=== PATIENT | female | born 1980 | race African-American/Black ===

== ENCOUNTER 2018-07-09 12:04 | Inpatient (IN) | payer OTHER ==
[2018-07-09 12:33] VITALS: BMI 28.6
--- NOTE | 2018-07-09 14:16 | HP ---
CIWA Score Nausea/Vomitin Muscle Tremors: 3 Anxiety: 3 Agitation: 2 Paroxysmal Sweats: 1-Minimal Palms Moist Orientation: 0-Oriented Tacttile Disturbances: 1-Very Mild Itch/Numbness Auditory Disturbances: 1-Very Mild Visual Disturbances: 0-None Headache: 2-Mild CIWA-Ar Total Score: 16 - Admission Criteria OASAS Guidelines: Admission for Medically Managed Detox: Requires at least one of the followin. CIWA greater than 12 2. Seizures within the past 24 hours 3. Delirium tremens within the past 24 hours 4. Hallucinations within the past 24 hours 5. Acute intervention needed for co occurring medical disorder 6. Acute intervention needed for co occurring psychiatric disorder 7. Severe withdrawal that cannot be handled at a lower level of care (continued vomiting, continued diarrhea, abnormal vital signs) requiring intravenous medication and/or fluids 8. Patient presents the following: CIWA greater than 12 Admission Criteria Met: Admission criteria met Admission ROS BHS - HPI Chief Complaint: i need help to stop drinking alcohol Allergies/Adverse Reactions: Allergies Allergy/AdvReac Type Severity Reaction Status Date / Time lamotrigine [From Lamictal] Allergy Severe Rash Verified 07/09/18 14:07 Penicillins Allergy Severe Hives Verified 07/09/18 14:07 History of Present Illness: this 38 years old female with alcohol dependence,k2,withdrawal symptom,last detox [facility] in 03/15 not completed hypertension ,iddm, nicotine dependence bipolar disorder plan for inpatient rehab longest period of sobriety 2 years asthmatic bronchitis seen at [facility] last night Exam Limitations: No Limitations - Ebola screening Have you traveled outside of the country in the last 21 days: No Have you had contact with anyone from an Ebola affected area: No Have you been sick,other than usual withdrawal symptoms: No Do you have a fever: No - Review of Systems Constitutional: Loss of Appetite, Malaise, Night Sweats, Changes in sleep, Weakness EENT: reports: Nose Congestion Respiratory: reports: No Symptoms reported, Other (history of bronchitis) Cardiac: reports: No Symptoms Reported GI: reports: Nausea, Vomiting, Abdominal cramping : reports: No Symptoms Reported Musculoskeletal: reports: Back Pain, Muscle Pain Integumentary: reports: Dryness Neuro: reports: Headache, Tremors Endocrine: reports: No Symptoms Reported Hematology: reports: No Symptoms Reported Psychiatric: reports: No Sypmtoms Reported, Judgement Intact, Mood/Affect Appropiate, Orientated x3, other (bipolar disorder) Other Systems: Reviewed and Negative Patient History - Patient Medical History Hx Anemia: No Hx Asthma: No Hx Chronic Obstructive Pulmonary Disease (COPD): No Hx Cancer: No Hx Cardiac Disorders: No Hx Congestive Heart Failure: No Hx Hypertension: Yes (on med) Hx Hypercholesterolemia: No Hx Pacemaker: No HX Cerebrovascular Accident: No Hx Seizures: No Hx Dementia: No Hx Diabetes: Yes (iddm) Hx Gastrointestinal Disorders: Yes (gerd no med) Hx Liver Disease: No Hx Genitourinary Disorders: No Hx Sexually Transmitted Disorders: No Hx Renal Disease (ESRD): No Hx Thyroid Disease: No Hx Human Immunodeficiency Virus (HIV): No (last 2018 negative) Hx Hepatitis C: No Hx Depression: No Hx Suicide Attempt: Yes (overdose) Hx Bipolar Disorder: Yes Hx Schizophrenia: No Other Medical History: no suicidal,no homicidal - Patient Surgical History Hx Section: Yes (x 2 last 2005) - PPD History Previous Implant?: Yes Documented Results: Negative w/o proof Implanted On Prior R Admission?: No PPD to be Administered?: Yes - Reproductive History Patient is a Female of Child Bearing Age (11 -55 yrs old): Yes Last Menstrual Period: 07/02/18 Patient : No - Smoking Cessation Smoking history: Current every day smoker Have you smoked in the past 12 months: Yes Aproximately how many cigarettes per day: 6 Cigars Per Day: 0 Hx Chewing Tobacco Use: No Initiated information on smoking cessation: Yes 'Breaking Loose' booklet given: 07/09/18 - Substance & Tx. History Hx Alcohol Use: Yes Hx Substance Use: Yes Substance Use Type: Alcohol, Marijuana Hx Substance Use Treatment: Yes (03/15 at [facility]) - Substances Abused Alcohol Route: Oral Frequency: Daily Amount used: 1/2 GALLON Age of first use: 11 Date of Last Use: 07/09/18 K2 Route: Smoking Frequency: Daily Amount used: $40-50 Age of first use: 33 Date of Last Use: 07/08/18 Family Disease History - Family Disease History Family Disease History: Other: Father (alcohol,decased), Mother () Admission Physical Exam BHS - Vital Signs Vital Signs: Vital Signs - 24 hr 02/11/19 12:31 Temperature 98.0 F Pulse Rate 68 Respiratory 18 Rate Blood Pressure 124/70 - Physical General Appearance: Yes: Moderate Distress, Tremorous, Irritable, Sweating, Anxious HEENTM: Yes: Normal ENT Inspection, CARMEN, Pharynx Normal Respiratory: Yes: Lungs Clear, Normal Breath Sounds, No Respiratory Distress Neck: Yes: Within Normal Limits, Supple, Trachea in good position Breast: Yes: Breast Exam Deferred Cardiology: Yes: Within Normal Limits, Regular Rhythm, Regular Rate, S1, S2 Abdominal: Yes: Within Normal Limits, Non Tender, Flat, Soft, Increased Bowel Sounds Genitourinary: Yes: Within Normal Limits Back: Yes: Muscle Spasm Musculoskeletal: Yes: Back pain, Muscle Pain Extremities: Yes: Tremors Neurological: Yes: antique furniture reproducer II-XII NML intact, Fully Oriented, Alert, Motor Strength 5/5 Integumentary: Yes: Dry Lymphatic: Yes: Within Normal Limits - Diagnostic (1) Alcohol dependence with uncomplicated withdrawal Current Visit: Yes Status: Chronic (2) Cannabis dependence Current Visit: Yes Status: Chronic (3) IDDM (insulin dependent diabetes mellitus) Current Visit: Yes Status: Chronic (4) Bipolar disorder Current Visit: Yes Status: Chronic (5) Neuropathy Current Visit: Yes Status: Acute (6) Nicotine dependence Current Visit: Yes Status: Chronic (7) Bipolar disorder Current Visit: Yes Status: Acute Cleared for Admission [facility] - Detox or Rehab [facility] Level of Care: Medically Managed Detox Regimen/Protocol: Librium [facility] Breath Alcohol Content Breath Alcohol Content: 0 Urine Pregancy Test - Result Urine Test Results: Negative- NO Line Present Urine Drug Screen - Results Drug Screen Negative: Yes Inpatient Rehab Admission - Rehab Decision to Admit Inpatient rehab admission?: No
[2018-07-09] MEDS ORDERED: NICOTINE POLACRILEX 2 MG GUM BC PRN (14:31)
[2018-07-09] MEDS ORDERED: MENTHOL/PHENOL 1 EACH UD MM PRN (14:31)
[2018-07-09] MEDS ORDERED: MAGNESIUM CITRATE 300 ML BOTTLE PO PRN (14:31)
[2018-07-09] MEDS ORDERED: P-EPHED 60MG/TRIPROLIDI 2.5MG TABLET PO PRN (14:31)
[2018-07-09] MEDS ORDERED: chlordiazePOXIDE HCL 25 MG CAPSULE PO PRN (14:31)
[2018-07-09] MEDS ORDERED: IBUPROFEN 400 MG TABLET (FP) PO PRN (14:31)
[2018-07-09] MEDS ORDERED: LOPERAMIDE HCL 2 MG CAPSULE PO PRN (14:31)
[2018-07-09] MEDS ORDERED: guaiFENesin/D-METHORPHAN HB 10 ML UNIT-DOSE CUPS PO PRN (14:31)
[2018-07-09] MEDS ORDERED: ACETAMINOPHEN 325 MG TABLET (FP) PO PRN (14:31)
[2018-07-09] MEDS ORDERED: hydrOXYzine PAMOATE 50 MG CAPSULE (FP) PO PRN (14:31)
[2018-07-09] MEDS ORDERED: MAG HYDROX/AL HYDROX/SIMETH 30 ML UNIT-DOSE CUP PO PRN (14:31)
[2018-07-09] MEDS ORDERED: MAGNESIUM HYDROX 2400MG/30ML ORAL SUSPENSION 30 ML CUP PO PRN (14:31)
[2018-07-09] MEDS ORDERED: ALBUTEROL SO4 8 GM HFA INHALER IH PRN (14:36)
--- NOTE | 2018-07-09 15:23 | CONSULT ---
[facility] Psychiatric Consult - Data Date of interview: 07/09/18 Admission source: [facility] Identifying data: this 38 years old female with alcohol dependence,k2, withdrawal symptom,last detox [facility] in 03/15 not completed. hypertension , iddm,. nicotine dependence. bipolar disorder. plan for inpatient rehab. longest period of sobriety 2 years. asthmatic bronchitis. seen at [facility] last night
[2018-07-09] MEDS: metFORMIN HCL 500 MG TABLET (FP) PO SCH (16:24)
[2018-07-09] MEDS: chlordiazePOXIDE HCL 25 MG CAPSULE PO SCH ×2 (16:25→22:01)
[2018-07-09] MEDS: GABAPENTIN 100 MG CAPSULE (FP) PO SCH ×2 (16:25→21:37)
[2018-07-09] MEDS: INSULIN (NOVOLOG) ASPART 100 UNITS/ML 10ML VIAL SQ SCH (16:28)
--- NOTE | 2018-07-09 17:08 | CONSULT ---
[facility] Psychiatric Consult - Data Date of interview: 07/09/18 Admission source: [facility] Identifying data: This is 38 yo single AA mother of 2 (kids in Foster care), resides in long-term,supported by PA. Substance Abuse History: Reports drinking since 11 yo,beer then progressed to vodka(1 ltr daily),marijuana since HS,K2 since 33 yo. Medical History: Significant for IDDM,Neuropathy. Psychiatric History: First contact with psychiatrist was in 1994 after her mother .She was admitted to [facility] due to suicidal attempt(cut her wrist) .patient was dx with MDD,placed on Lexapro with good response.then she was functioning well with no meds until her father in 2002.Patient was admitted again after DOD with cocaine.She was dx with Bipolar disorder.Reports more than 25 psychiatric hospitalizations.Patient is poor compliance with psychiatric OPD care.she obtains psychotropics from local ER.Current medications :Depakote 500 mg po bid,Trilafon 12 mg po bid and Vistaril 50 mg po hs. Physical/Sexual Abuse/Trauma History: Patient denies. Mental Status Exam - Mental Status Exam Alert and Oriented to: Time, Place, Person Cognitive Function: Grossly Intact Patient Appearance: Well Groomed Mood: Sad, Anxious Affect: Labile Patient Behavior: Cooperative Speech Pattern: Clear Voice Loudness: Normal Thought Process: Goal Oriented Thought Disorder: Not Present Hallucinations: Denies Suicidal Ideation: Denies Homicidal Ideation: Denies Insight/Judgement: Fair Sleep: Difficulty falling asleep Appetite: Fair Muscle strength/Tone: Normal Gait/Station: Normal Psychiatric Findings - Problem List ([place] 1, 2,3) (1) Alcohol dependence with uncomplicated withdrawal Current Visit: Yes Status: Chronic (2) Bipolar disorder Current Visit: Yes Status: Chronic (3) Cannabis dependence Current Visit: Yes Status: Chronic (4) IDDM (insulin dependent diabetes mellitus) Current Visit: Yes Status: Chronic (5) Neuropathy Current Visit: Yes Status: Acute (6) Nicotine dependence Current Visit: Yes Status: Chronic (7) Neuropathy Current Visit: Yes Status: Chronic - Initial Treatment Plan Initial Treatment Plan: Continue current medications as per plan. will monitor progress.
[2018-07-09] MEDS: INSULIN (LEVEMIR) 100 UNITS/ML UNITS SQ SCH (21:38)
[2018-07-09] MEDS: DIVALPROEX NA *ER* EXTEND REL 500 MG TABLET.SA (FP) PO SCH (21:38)
[2018-07-09] MEDS: PERPHENAZINE 4 MG TABLET PO SCH (21:38)
[2018-07-09] MEDS: THIAMINE HCL 100 MG TABLET (FP) PO SCH (21:42)
[2018-07-09] MEDS ORDERED: MELATONIN 5 MG TABLETS PO PRN (22:00)
[2018-07-10] MEDS: chlordiazePOXIDE HCL 25 MG CAPSULE PO SCH ×4 (05:57→22:40)
[2018-07-10] MEDS: GABAPENTIN 100 MG CAPSULE (FP) PO SCH ×3 (05:57→22:40)
[2018-07-10] MEDS: metFORMIN HCL 500 MG TABLET (FP) PO SCH ×2 (06:00→17:48)
[2018-07-10] MEDS ORDERED: INSULIN (NOVOLOG) ASPART 100 UNITS/ML 10ML VIAL ONE (08:11)
[2018-07-10] MEDS: INSULIN (NOVOLOG) ASPART 100 UNITS/ML 10ML VIAL SQ SCH ×3 (08:12→17:04)
--- NOTE | 2018-07-10 09:23 | PN ---
BHS CIWA - CIWA Score Nausea/Vomitin Muscle Tremors: 2 Anxiety: 2 Agitation: 2 Paroxysmal Sweats: 1-Minimal Palms Moist Orientation: 0-Oriented Tacttile Disturbances: 1-Very Mild Itch/Numbness Auditory Disturbances: 1-Very Mild Visual Disturbances: 0-None Headache: 2-Mild CIWA-Ar Total Score: 13 BHS Progress Note (SOAP) Subjective: alert,irritable,anxious,interrupted sleep,pain in the body Objective: 07/10/18 09:21 Vital Signs Temperature 98.2 F 07/10/18 09:07 Pulse Rate 71 07/10/18 09:07 Respiratory Rate 18 07/10/18 09:07 Blood Pressure 122/77 07/10/18 09:07 O2 Sat by Pulse Oximetry (%) ekg nsr ,no aucte change Laboratory Last Values POC Glucometer 197 UNITS (80-120) 07/10/18 06:53 labs pending Assessment: 07/10/18 09:22 withdrawal symptom Plan: continue detox,bgm monitoring with insulin coverage
[2018-07-10] MEDS: PRENATAL VITAMINS W/ FOLIC ACID TABLET (FP) PO SCH (10:41)
[2018-07-10] MEDS: DIVALPROEX NA *ER* EXTEND REL 500 MG TABLET.SA (FP) PO SCH ×2 (10:41→22:28)
[2018-07-10] MEDS: PERPHENAZINE 4 MG TABLET PO SCH ×2 (10:41→22:28)
[2018-07-10] MEDS: LOSARTAN POTASSIUM 25 MG TABLET PO SCH (10:42)
[2018-07-10 11:06] LABS: HEMOGLOBIN 14.2 GM/dL (10.7-15.3); MCH 32.5 pg (25.7-33.7); MCHC 34.5 g/dl (32.0-36.0); PLATELET COUNT 334 K/MM3 (134-434); RBC 4.36 M/mm3 (3.60-5.2); RDW 13.3 % (11.6-15.6); WHITE BLOOD COUNT 7.3 K/mm3 (4.0-10.0)
[2018-07-10 11:08] LABS: ALBUMIN 3.6 g/dl (3.4-5.0); ALK PHOS 85 U/L (45-117); ANION GAP 6 MMOL/L (8-16); BILIRUBIN,TOTAL 0.2 mg/dL (0.2-1); BLOOD UREA NITROGEN 12 mg/dL (7-18); CALCIUM 9.3 mg/dL (8.5-10.1); CHLORIDE 100 mmol/L (98-107); CO2 28 mmol/L (21-32); CREATININE 0.7 mg/dL (0.55-1.3); GLUCOSE,RANDOM 253 mg/dL (74-106); POTASSIUM 4.3 mmol/L (3.5-5.1); SGOT/AST 15 U/L (15-37); SGPT/ALT 18 U/L (13-61); SODIUM 135 mmol/L (136-145); TOT PROT 7.3 g/dl (6.4-8.2)
--- NOTE | 2018-07-10 11:44 | PN ---
BHS Progress Note Note: insulin sliding scale ordered with coverage.
--- NOTE | 2018-07-10 16:33 | EKG ---
Test Reason : Blood Pressure : / mmHG Vent. Rate : 074 BPM Atrial Rate : 074 BPM P-R Int : 148 ms QRS Dur : 090 ms QT Int : 406 ms P-R-T Axes : 073 095 067 degrees QTc Int : 450 ms NORMAL SINUS RHYTHM RIGHTWARD AXIS BORDERLINE ECG NO PREVIOUS ECGS AVAILABLE Confirmed by Tres Yoon ([id number]) on 07/10/2018 4:32:58 PM Referred By: Confirmed By:Tres Yoon
[2018-07-10] MEDS: THIAMINE HCL 100 MG TABLET (FP) PO SCH (22:40)
[2018-07-10] MEDS: INSULIN (LEVEMIR) 100 UNITS/ML UNITS SQ SCH (22:42)
[2018-07-11] MEDS: metFORMIN HCL 500 MG TABLET (FP) PO SCH (06:19)
[2018-07-11] MEDS: GABAPENTIN 100 MG CAPSULE (FP) PO SCH (06:19)
[2018-07-11] MEDS: chlordiazePOXIDE HCL 25 MG CAPSULE PO SCH ×2 (06:19→12:57)
[2018-07-11] MEDS: INSULIN (NOVOLOG) ASPART 100 UNITS/ML 10ML VIAL SQ SCH (08:06)
[2018-07-11 09:18] VITALS: BP 117/69; PULSE 75; TEMP 97.3
--- NOTE | 2018-07-11 12:56 | DS ---
[facility] Detox Discharge Summary Admission Date: 07/09/18 Discharge Date: 07/11/18 - History Present History: Alcohol Dependence Additional Comments: 38 years old female admitted on 07/09/18 for alcohol withdrawal stabilization transferred from 6N to 3N due to verbal augmentative with peer patient insists to leave the detox unit without apparent reason patient is alert no acute distress denies suicidal ideation encourage the patient keep medication list in wallet bring in medication bottles to follow up care appointments Pertinent Past History: strong recommend the patient to attend 12 step self help community groups - Physical Exam Results Vital Signs: Vital Signs Temperature 97.3 F L 07/11/18 09:17 Pulse Rate 75 07/11/18 09:17 Respiratory Rate 18 07/11/18 09:17 Blood Pressure 117/69 07/11/18 09:17 O2 Sat by Pulse Oximetry (%) Pertinent Admission Physical Exam Findings: alcohol withdrawal sx Laboratory Last Values WBC 7.3 K/mm3 (4.0-10.0) 07/10/18 05:50 RBC 4.36 M/mm3 (3.60-5.2) 07/10/18 05:50 Hgb 14.2 GM/dL (10.7-15.3) 07/10/18 05:50 Hct 41.0 % (32.4-45.2) 07/10/18 05:50 MCV 94.0 fl (80-96) 07/10/18 05:50 MCH 32.5 pg (25.7-33.7) 07/10/18 05:50 MCHC 34.5 g/dl (32.0-36.0) 07/10/18 05:50 RDW 13.3 % (11.6-15.6) 07/10/18 05:50 Plt Count 334 K/MM3 (134-434) 07/10/18 05:50 MPV 10.0 fl (7.5-11.1) 07/10/18 05:50 Sodium 135 mmol/L (136-145) L 07/10/18 05:50 Potassium 4.3 mmol/L (3.5-5.1) 07/10/18 05:50 Chloride 100 mmol/L (98-107) 07/10/18 05:50 Carbon Dioxide 28 mmol/L (21-32) 07/10/18 05:50 Anion Gap 6 MMOL/L (8-16) L 07/10/18 05:50 BUN 12 mg/dL (7-18) 07/10/18 05:50 Creatinine 0.7 mg/dL (0.55-1.3) 07/10/18 05:50 Creat Clearance w eGFR > 60 (>60) 07/10/18 05:50 POC Glucometer 203 UNITS (80-120) 07/11/18 06:17 Random Glucose 253 mg/dL (74-106) H 07/10/18 05:50 Calcium 9.3 mg/dL (8.5-10.1) 07/10/18 05:50 Total Bilirubin 0.2 mg/dL (0.2-1) 07/10/18 05:50 AST 15 U/L (15-37) 07/10/18 05:50 ALT 18 U/L (13-61) 07/10/18 05:50 Alkaline Phosphatase 85 U/L (45-117) 07/10/18 05:50 Total Protein 7.3 g/dl (6.4-8.2) 07/10/18 05:50 Albumin 3.6 g/dl (3.4-5.0) 07/10/18 05:50 RPR Titer Nonreactive (NONREACTIVE) 07/10/18 05:50 HIV 1&2 Antibody Screen Negative 07/09/18 14:30 HIV P24 Antigen Negative 07/09/18 14:30 lab noted - Treatment Hospital Course: Detox Protocol Followed, Responded well Patient has Accepted a Rehab Referral to: 12 step community self help group - Medication Discharge Medications: Ambulatory Orders Albuterol Sulfate Inhaler - [Ventolin Hfa Inhaler -] 2 inh PO Q4H PRN 07/09/18 Divalproex *ER* [Depakote *ER* -] 500 mg PO BID 07/09/18 Gabapentin [Neurontin -] 100 mg PO Q8H 07/09/18 Hydroxyzine HCl 50 mg PO HS 07/09/18 Insulin (Novolog) [Novolog] 6 units SQ AC 07/09/18 Insulin Glargine,Hum.rec.anlog [Lantus Solostar PEN (NF)] 18 units SQ HS Losartan Potassium [Cozaar -] 25 mg PO DAILY 07/09/18 Perphenazine [Trilafon] 12 mg PO BID 07/09/18 metFORMIN HCL [Metformin HCl] 1,000 mg PO BID 07/09/18 - Diagnosis (1) Alcohol dependence with uncomplicated withdrawal Status: Acute (2) IDDM (insulin dependent diabetes mellitus) Status: Chronic (3) Neuropathy Status: Chronic (4) Nicotine dependence Status: Acute Qualifiers: Nicotine product type: cigarettes Substance use status: in withdrawal Qualified Code(s): F17.213 - Nicotine dependence, cigarettes, with withdrawal - AMA Did Patient Leave Against Medical Advice: Yes
[2018-07-11] MEDS: DIVALPROEX NA *ER* EXTEND REL 500 MG TABLET.SA (FP) PO SCH (12:58)
[2018-07-11] MEDS: LOSARTAN POTASSIUM 25 MG TABLET PO SCH (12:58)
[2018-07-11] MEDS: PRENATAL VITAMINS W/ FOLIC ACID TABLET (FP) PO SCH (12:58)
[2018-07-11] MEDS: PERPHENAZINE 4 MG TABLET PO SCH (12:58)
[2018-07-11] MEDS ORDERED: chlordiazePOXIDE 5 MG CAPSULE PO SCH (17:00)
[2018-07-12] MEDS ORDERED: chlordiazePOXIDE HCL 10 MG CAPSULE PO SCH (17:00)
== END 2018-07-11 10:05 | disposition left against medical advice (07) | DRG 770 ==
LOC: YASAS 12:04 → Y6N 14:51 → Y3N 07-10 21:05
PROVIDERS: ADMIT Surgery; ATTEND Surgery
PROC: HZ2ZZZZ Detoxification Services for Substance Abuse Treatment (ICD-10-PCS; principal; 2018-07-09)
DX: F10.230 Alcohol dependence with withdrawal, uncomplicated (principal); F12.20 Cannabis dependence, uncomplicated; F17.213 Nicotine dependence, cigarettes, with withdrawal; F31.9 Bipolar disorder, unspecified; I10 Essential (primary) hypertension; E11.9 Type 2 diabetes mellitus without complications; G62.9 Polyneuropathy, unspecified; K21.9 Gastro-esophageal reflux disease without esophagitis; Z79.4 Long term (current) use of insulin; Z88.0 Allergy status to penicillin
CPT/HCPCS: 36415; 80053; 82962; 85027; 86593; 87389; 93005; 93010

== ENCOUNTER 2018-08-12 08:34 | Inpatient (IN) | payer OTHER ==
[2018-08-12 09:15] VITALS: BMI 25.5
--- NOTE | 2018-08-12 09:34 | HP ---
CIWA Score Nausea/Vomitin Muscle Tremors: 2 Anxiety: 2 Agitation: 2 Paroxysmal Sweats: 1-Minimal Palms Moist Orientation: 0-Oriented Tacttile Disturbances: 1-Very Mild Itch/Numbness Auditory Disturbances: 1-Very Mild Visual Disturbances: 0-None Headache: 2-Mild CIWA-Ar Total Score: 13 - Admission Criteria OASAS Guidelines: Admission for Medically Managed Detox: Requires at least one of the followin. CIWA greater than 12 2. Seizures within the past 24 hours 3. Delirium tremens within the past 24 hours 4. Hallucinations within the past 24 hours 5. Acute intervention needed for co occurring medical disorder 6. Acute intervention needed for co occurring psychiatric disorder 7. Severe withdrawal that cannot be handled at a lower level of care (continued vomiting, continued diarrhea, abnormal vital signs) requiring intravenous medication and/or fluids 8. Patient presents the following: CIWA greater than 12 Admission Criteria Met: Admission criteria met Admission ROS S - HPI Chief Complaint: i need help to stop drinking alcohol,crack,k2 Allergies/Adverse Reactions: Allergies Allergy/AdvReac Type Severity Reaction Status Date / Time lamotrigine [From Lamictal] Allergy Severe Rash Verified 08/12/18 10:30 Penicillins Allergy Severe Hives Verified 08/12/18 10:30 History of Present Illness: this 38 years old female with alcohol,crack and k2 dependence,withdrawal symptom ,seeking detox, multiple admissions in the past,last 07/09/18 to 07/11/18 not completed hypertension,iddm, history of herpes lip nicotine dependence 6 cigarette/day bipolar medication on med longest period of sobriety for 2 years Exam Limitations: No Limitations - Ebola screening Have you traveled outside of the country in the last 21 days: No (N) Have you had contact with anyone from an Ebola affected area: No Have you been sick,other than usual withdrawal symptoms: No Do you have a fever: No - Review of Systems Constitutional: Loss of Appetite, Malaise, Night Sweats, Changes in sleep, Weakness EENT: reports: Nose Congestion Respiratory: reports: No Symptoms reported Cardiac: reports: No Symptoms Reported GI: reports: Nausea, Poor Appetite, Abdominal cramping : reports: No Symptoms Reported Musculoskeletal: reports: Back Pain, Muscle Pain Integumentary: reports: Dryness Neuro: reports: Headache, Tremors Endocrine: reports: No Symptoms Reported Hematology: reports: No Symptoms Reported Psychiatric: reports: No Sypmtoms Reported, Judgement Intact, Mood/Affect Appropiate, Orientated x3, other (bipolar disorder) Other Systems: Reviewed and Negative Patient History - Patient Medical History Hx Anemia: No Hx Asthma: No Hx Chronic Obstructive Pulmonary Disease (COPD): No Hx Cancer: No Hx Cardiac Disorders: No Hx Congestive Heart Failure: No Hx Hypertension: Yes (on med) Hx Hypercholesterolemia: No Hx Pacemaker: No HX Cerebrovascular Accident: No Hx Seizures: No Hx Dementia: No Hx Diabetes: Yes (iddm) Hx Gastrointestinal Disorders: Yes (gerd no med) Hx Liver Disease: No Hx Genitourinary Disorders: No Hx Sexually Transmitted Disorders: No Hx Renal Disease (ESRD): No Hx Thyroid Disease: No Hx Human Immunodeficiency Virus (HIV): No (last 2017 negative) Hx Hepatitis C: No Hx Depression: No Hx Suicide Attempt: Yes (overdose in 2003) Hx Bipolar Disorder: Yes (on med) Hx Schizophrenia: No Other Medical History: no suicidal,no homicidal - Patient Surgical History Past Surgical History: Yes Hx Section: Yes (x 2 last 2005) Other Surgical History: Pt had a leep procedure Anesthesia Reaction: No - PPD History Previous Implant?: Yes Documented Results: Negative w/o proof Implanted On Prior [facility] Admission?: Yes Date: 07/11/18 Results: no reading PPD to be Administered?: Yes - Reproductive History Patient is a Female of Child Bearing Age (11 -55 yrs old): Yes Last Menstrual Period: 07/02/18 Patient : No - Smoking Cessation Smoking history: Current every day smoker Have you smoked in the past 12 months: Yes Aproximately how many cigarettes per day: 6 Cigars Per Day: 0 Hx Chewing Tobacco Use: No Initiated information on smoking cessation: Yes 'Breaking Loose' booklet given: 08/12/18 - Substance & Tx. History Hx Alcohol Use: Yes Hx Substance Use: Yes Substance Use Type: Alcohol, Cocaine, Marijuana Hx Substance Use Treatment: Yes ([facility] 07/09/18 to 07/11/18 not completed) - Substances Abused Alcohol Route: Oral Frequency: Daily Amount used: 1/5th of vodka Age of first use: 11 Date of Last Use: 08/11/18 Crack Route: Smoking Frequency: 1-2 times per week Amount used: 100$ Age of first use: 26 Date of Last Use: 08/11/18 k2 Route: Smoking Frequency: Daily Amount used: 20$ Age of first use: 31 Date of Last Use: 08/11/18 Family Disease History - Family Disease History Family Disease History: Other: Father (alcohol,decased), Mother () Admission Physical Exam [facility] - Vital Signs Vital Signs: Vital Signs - 24 hr 08/12/18 09:12 Temperature 96.1 F L Pulse Rate 78 Respiratory 18 Rate Blood Pressure 127/78 - Physical General Appearance: Yes: Moderate Distress, Tremorous, Irritable, Sweating, Anxious HEENTM: Yes: Normal ENT Inspection, CARMEN, Pharynx Normal Respiratory: Yes: Lungs Clear, Normal Breath Sounds, No Respiratory Distress Neck: Yes: Within Normal Limits, Supple, Trachea in good position Breast: Yes: Breast Exam Deferred Cardiology: Yes: Within Normal Limits, Regular Rhythm, Regular Rate, S1, S2 Abdominal: Yes: Within Normal Limits, Non Tender, Flat, Soft, Organomegaly Genitourinary: Yes: Within Normal Limits Back: Yes: Muscle Spasm Musculoskeletal: Yes: Back pain, Muscle Pain Extremities: Yes: Tremors Neurological: Yes: riding double II-XII NML intact, Fully Oriented, Alert, Motor Strength 5/5 Integumentary: Yes: Dry Lymphatic: Yes: Within Normal Limits - Diagnostic (1) Alcohol dependence with uncomplicated withdrawal Current Visit: No Status: Acute (2) Cocaine dependence Current Visit: Yes Status: Acute (3) Bipolar disorder Current Visit: No Status: Chronic (4) Cannabis dependence Current Visit: No Status: Chronic (5) IDDM (insulin dependent diabetes mellitus) Current Visit: No Status: Chronic (6) Neuropathy Current Visit: No Status: Chronic (7) Hypertension Current Visit: Yes Status: Acute (8) Syncope Current Visit: Yes Status: Acute Cleared for Admission [facility] - Detox or Rehab [facility] Level of Care: Medically Managed Detox Regimen/Protocol: Librium S Breath Alcohol Content Breath Alcohol Content: 0 Urine Pregancy Test - Result Urine Test Results: Negative - NO Line Present Urine Drug Screen - Results Drug Screen Negative: No Urine Drug Screen Results: TERENCE-Cocaine, BZO-Benzodiazepines Inpatient Rehab Admission - Rehab Decision to Admit Inpatient rehab admission?: No
[2018-08-12] MEDS ORDERED: hydrOXYzine PAMOATE 25 MG CAPSULE (FP) PO PRN (09:50)
[2018-08-12] MEDS ORDERED: MENTHOL/PHENOL 1 EACH UD MM PRN (09:50)
[2018-08-12] MEDS ORDERED: ACETAMINOPHEN 325 MG TABLET (FP) PO PRN ×2 (09:50)
[2018-08-12] MEDS ORDERED: MAGNESIUM CITRATE 300 ML BOTTLE PO PRN (09:50)
[2018-08-12] MEDS ORDERED: MAG HYDROX/AL HYDROX/SIMETH 30 ML UNIT-DOSE CUP PO PRN (09:50)
[2018-08-12] MEDS ORDERED: BISMUTH SUBSALICYLATE 524 MG/30 ML UD PO PRN (09:50)
[2018-08-12] MEDS ORDERED: MAGNESIUM HYDROX 2400MG/30ML ORAL SUSPENSION 30 ML CUP PO PRN (09:50)
[2018-08-12] MEDS ORDERED: chlordiazePOXIDE HCL 25 MG CAPSULE PO PRN (09:50)
[2018-08-12] MEDS ORDERED: IBUPROFEN 400 MG TABLET (FP) PO PRN (09:50)
[2018-08-12] MEDS ORDERED: METHOCARBAMOL 500 MG TABLET PO PRN (09:50)
[2018-08-12] MEDS ORDERED: ALBUTEROL SO4 8 GM HFA INHALER IH PRN (10:55)
[2018-08-12] MEDS ORDERED: GABAPENTIN 100 MG CAPSULE (FP) PO SCH (11:00)
--- NOTE | 2018-08-12 12:05 | CONSULT ---
[facility] Psychiatric Consult - Data Date of interview: 08/12/18 Admission source: Admitted as a tranfer from [facility] Identifying data: Patient is a 38 y/o AA female single, unemeployed, homeless, mother of 2 adopted children on public assistance Substance Abuse History: Here admitted to Detox for alcohol abuse and use of crack,marijuana, K2 and nicotine dependence , drinks vodka daily, denies black out spells or seizure disorder> She complains of withdrawal symptoms. Patient has sevearal prior Detox admsiiosn, her most recent admission to [facility] was in 2015. Refer to addiction counselor note for more detailed drug history Medical History: She suffered from HTN, IDDM and neuropathy diabetic. Past treatment for STS ( herpes) Psychiatric History: Patient has a DSM diagnosis of Schizophrenia and Bipolar disorder. She is non compliant with her treatment and has been receiving out patient psychiatric care @ [facility]. She has had numerous past psychiatric hospitalizatiuons overtime with poor treatment compliance. She reported a suicide attempt many years ago by OD cocaine following her father;s . Currently she denies psychosis, thought disorder, tiffanie, anxiety or hallucinations, she denies suicidal or hmicidal ideation. Medciations: Trilafon 12 mg po bid. Vistaril 50 mg q hs. Depakote 500 mg po bid Physical/Sexual Abuse/Trauma History: Patent denied Mental Status Exam - Mental Status Exam Alert and Oriented to: Place, Person Cognitive Function: Fair Patient Appearance: Unkempt, Disheveled Mood: Euthymic Affect: Appropriate Patient Behavior: Cooperative Speech Pattern: Appropriate Voice Loudness: Normal Thought Process: Intact Thought Disorder: Not Present Hallucinations: Denies Suicidal Ideation: Denies Homicidal Ideation: Denies Insight/Judgement: Poor Sleep: Poorly Appetite: Fair Muscle strength/Tone: Normal Gait/Station: Normal Additional Comments: Patient is not exhiniting signs or of psychosis or bipolarity at this time Psychiatric Findings - Problem List ([place] 1, 2,3) (1) Cocaine dependence Current Visit: Yes Status: Acute (2) Hypertension Current Visit: Yes Status: Acute (3) Alcohol dependence with uncomplicated withdrawal Current Visit: No Status: Acute (4) Bipolar disorder Current Visit: No Status: Acute (5) Cannabis dependence Current Visit: No Status: Chronic (6) IDDM (insulin dependent diabetes mellitus) Current Visit: No Status: Chronic (7) Neuropathy Current Visit: No Status: Chronic - Initial Treatment Plan Initial Treatment Plan: Continue deox treatment. Valproic acid level. Trilafon 12 mg po q hs. Vistaril 50 mg po q hs. Monitor response
[2018-08-12] MEDS: PRENATAL VITAMINS W/ FOLIC ACID TABLET (FP) PO SCH (13:19)
[2018-08-12] MEDS: NICOTINE 7 MG/24 HOURS TOPICAL PATCH TD SCH (13:19)
[2018-08-12] MEDS: INSULIN (NOVOLOG) ASPART 100 UNITS/ML 10ML VIAL SQ SCH ×2 (13:20→16:21)
[2018-08-12] MEDS: LOSARTAN POTASSIUM 25 MG TABLET PO SCH (13:20)
--- NOTE | 2018-08-12 15:26 | PN ---
BHS Progress Note Note: patient refuses first ppd attempt order second ppd
[2018-08-12] MEDS ORDERED: INSULIN SLIDING SCALE (NOVOLOG) 1 VIAL SQ ONE (16:17)
[2018-08-12] MEDS ORDERED: GABAPENTIN 100 MG CAPSULE (FP) PO ONE (16:32)
[2018-08-12] MEDS: chlordiazePOXIDE HCL 25 MG CAPSULE PO SCH ×2 (17:30→22:03)
[2018-08-12] MEDS ORDERED: hydrOXYzine PAMOATE 50 MG CAPSULE (FP) PO ONE (22:00)
[2018-08-12] MEDS: metFORMIN HCL 500 MG TABLET (FP) PO SCH (22:03)
[2018-08-12] MEDS: AMMONIUM LACTATE 12% LOTION 225 GM BOTTLE TP SCH (22:04)
[2018-08-12] MEDS: valACYclovir HCL 500 MG TABLET (FP) PO SCH (22:04)
[2018-08-12] MEDS: GABAPENTIN 100 MG CAPSULE (FP) PO SCH (22:04)
[2018-08-12] MEDS: THIAMINE HCL 100 MG TABLET (FP) PO SCH (22:04)
[2018-08-12] MEDS: PERPHENAZINE 4 MG TABLET PO SCH (22:05)
[2018-08-12] MEDS: INSULIN (LEVEMIR) 100 UNITS/ML UNITS SQ SCH (22:07)
[2018-08-12] MEDS: MELATONIN 5 MG TABLETS PO PRN (22:09)
[2018-08-13] MEDS: chlordiazePOXIDE HCL 25 MG CAPSULE PO SCH ×4 (06:34→22:52)
[2018-08-13] MEDS: GABAPENTIN 100 MG CAPSULE (FP) PO SCH ×3 (06:34→21:28)
[2018-08-13] MEDS: INSULIN (NOVOLOG) ASPART 100 UNITS/ML 10ML VIAL SQ SCH ×3 (06:38→16:58)
[2018-08-13] MEDS ORDERED: INSULIN SLIDING SCALE (NOVOLOG) 1 VIAL SQ ONE (06:40)
[2018-08-13 10:02] LABS: HEMATOCRIT 39.5 % (32.4-45.2); HEMOGLOBIN 13.7 GM/dL (10.7-15.3); MCH 32.9 pg (25.7-33.7); MCHC 34.6 g/dl (32.0-36.0); MEAN PLT VOLUME 8.1 fl (7.5-11.1); PLATELET COUNT 431 K/MM3 (134-434); RBC 4.15 M/mm3 (3.60-5.2); RDW 14.6 % (11.6-15.6); WHITE BLOOD COUNT 6.9 K/mm3 (4.0-10.0)
[2018-08-13 10:24] LABS: ALBUMIN 3.4 g/dl (3.4-5.0); ALK PHOS 102 U/L (45-117); ANION GAP 9 MMOL/L (8-16); BILIRUBIN,TOTAL 0.2 mg/dL (0.2-1); BLOOD UREA NITROGEN 9 mg/dL (7-18); CALCIUM 8.8 mg/dL (8.5-10.1); CHLORIDE 103 mmol/L (98-107); CO2 26 mmol/L (21-32); CREATININE 0.8 mg/dL (0.55-1.3); GLUCOSE,RANDOM 236 mg/dL (74-106); POTASSIUM 4.3 mmol/L (3.5-5.1); SGOT/AST 23 U/L (15-37); SGPT/ALT 30 U/L (13-61); SODIUM 137 mmol/L (136-145); TOT PROT 7.2 g/dl (6.4-8.2)
[2018-08-13] MEDS: metFORMIN HCL 500 MG TABLET (FP) PO SCH ×2 (10:33→21:28)
[2018-08-13] MEDS: PERPHENAZINE 4 MG TABLET PO SCH ×2 (10:33→21:28)
[2018-08-13] MEDS: AMMONIUM LACTATE 12% LOTION 225 GM BOTTLE TP SCH ×2 (10:33→21:34)
[2018-08-13] MEDS: valACYclovir HCL 500 MG TABLET (FP) PO SCH ×2 (10:33→21:28)
[2018-08-13] MEDS: NICOTINE 7 MG/24 HOURS TOPICAL PATCH TD SCH (10:33)
[2018-08-13] MEDS: PRENATAL VITAMINS W/ FOLIC ACID TABLET (FP) PO SCH (10:34)
[2018-08-13] MEDS: LOSARTAN POTASSIUM 25 MG TABLET PO SCH (10:34)
[2018-08-13 11:49] LABS: URINE APPEARANCE SLCLOUDY; URINE BILIRUBIN NEGATIVE (<2.0 mg/dL); URINE COLOR YELLOW; URINE GLUCOSE (UA) 1+ (NEGATIVE); URINE KETONE NEGATIVE (NEGATIVE); URINE LEUK ESTERASE NEGATIVE (NEGATIVE); URINE NITRITE NEGATIVE (NEGATIVE); URINE PROTEIN NEGATIVE (NEGATIVE); URINE UROBILINOGEN NEGATIVE mg/dL (0.2-1.0)
--- NOTE | 2018-08-13 12:32 | PN ---
[facility] CIWA - CIWA Score Nausea/Vomitin-No Nausea/No Vomiting Muscle Tremors: 2 Anxiety: 1-Mildly Anxious Agitation: 1-Slight > Activity Paroxysmal Sweats: 1-Minimal Palms Moist Orientation: 3-Disoriented Date>2 days Tacttile Disturbances: 0-None Auditory Disturbances: 0-None Visual Disturbances: 0-None Headache: 0-None Present CIWA-Ar Total Score: 8 S Progress Note (SOAP) Subjective: tremor sweating trouble sleep at night [facility] indicated non adherence to depakote Objective: 08/13/18 12:41 Vital Signs Temperature 96.1 F L 08/13/18 09:11 Pulse Rate 70 08/13/18 09:11 Respiratory Rate 18 08/13/18 09:11 Blood Pressure 130/83 08/13/18 09:11 O2 Sat by Pulse Oximetry (%) Laboratory Last Values WBC 6.9 K/mm3 (4.0-10.0) 08/13/18 07:40 RBC 4.15 M/mm3 (3.60-5.2) 08/13/18 07:40 Hgb 13.7 GM/dL (10.7-15.3) 08/13/18 07:40 Hct 39.5 % (32.4-45.2) 08/13/18 07:40 MCV 95.0 fl (80-96) 08/13/18 07:40 MCH 32.9 pg (25.7-33.7) 08/13/18 07:40 MCHC 34.6 g/dl (32.0-36.0) 08/13/18 07:40 RDW 14.6 % (11.6-15.6) 08/13/18 07:40 Plt Count 431 K/MM3 (134-434) D 08/13/18 07:40 MPV 8.1 fl (7.5-11.1) D 08/13/18 07:40 Sodium 137 mmol/L (136-145) 08/13/18 07:40 Potassium 4.3 mmol/L (3.5-5.1) 08/13/18 07:40 Chloride 103 mmol/L (98-107) 08/13/18 07:40 Carbon Dioxide 26 mmol/L (21-32) 08/13/18 07:40 Anion Gap 9 MMOL/L (8-16) 08/13/18 07:40 BUN 9 mg/dL (7-18) 08/13/18 07:40 Creatinine 0.8 mg/dL (0.55-1.3) 08/13/18 07:40 Creat Clearance w eGFR 79.44 (>60) 08/13/18 07:40 POC Glucometer 127 UNITS (80-120) 08/13/18 11:49 Random Glucose 236 mg/dL (74-106) H 08/13/18 07:40 Calcium 8.8 mg/dL (8.5-10.1) 08/13/18 07:40 Total Bilirubin 0.2 mg/dL (0.2-1) 08/13/18 07:40 AST 23 U/L (15-37) 08/13/18 07:40 ALT 30 U/L (13-61) 08/13/18 07:40 Alkaline Phosphatase 102 U/L (45-117) 08/13/18 07:40 Total Protein 7.2 g/dl (6.4-8.2) 08/13/18 07:40 Albumin 3.4 g/dl (3.4-5.0) 08/13/18 07:40 Urine Color Yellow 08/13/18 09:50 Urine Appearance Slcloudy 08/13/18 09:50 Urine pH 6.0 (5.0-8.0) 08/13/18 09:50 Ur Specific [place] 1.021 (1.010-1.035) 08/13/18 09:50 Urine Protein Negative (NEGATIVE) 08/13/18 09:50 Urine Glucose (UA) 1+ (NEGATIVE) H 08/13/18 09:50 Urine Ketones Negative (NEGATIVE) 08/13/18 09:50 Urine Blood Negative (NEGATIVE) 08/13/18 09:50 Urine Nitrite Negative (NEGATIVE) 08/13/18 09:50 Urine Bilirubin Negative (<2.0 mg/dL) 08/13/18 09:50 Urine Urobilinogen Negative mg/dL (0.2-1.0) 08/13/18 09:50 Ur Leukocyte Esterase Negative (NEGATIVE) 08/13/18 09:50 Valproic Acid 3.6 ug/ml (50-100) L 08/13/18 07:40 lab noted Assessment: 08/13/18 12:41 withdrawal sx Plan: continue detox
[2018-08-13] MEDS ORDERED: guaiFENesin 200 MG/10 ML 10 ML UNIT-DOSE CUPS PO PRN ×2 (18:27→18:32)
[2018-08-13] MEDS: MELATONIN 5 MG TABLETS PO PRN (21:30)
[2018-08-13] MEDS: INSULIN (LEVEMIR) 100 UNITS/ML UNITS SQ SCH (21:34)
[2018-08-13] MEDS: THIAMINE HCL 100 MG TABLET (FP) PO SCH (21:41)
[2018-08-14] MEDS: chlordiazePOXIDE HCL 25 MG CAPSULE PO SCH ×2 (05:35→10:06)
[2018-08-14] MEDS: GABAPENTIN 100 MG CAPSULE (FP) PO SCH (05:35)
[2018-08-14] MEDS ORDERED: INSULIN SLIDING SCALE (NOVOLOG) 1 VIAL SQ ONE ×2 (05:39→11:04)
[2018-08-14] MEDS: INSULIN (NOVOLOG) ASPART 100 UNITS/ML 10ML VIAL SQ SCH ×2 (06:01→10:59)
[2018-08-14 09:31] VITALS: TEMP 98.7
[2018-08-14] MEDS: PRENATAL VITAMINS W/ FOLIC ACID TABLET (FP) PO SCH (10:06)
[2018-08-14] MEDS: NICOTINE 7 MG/24 HOURS TOPICAL PATCH TD SCH (10:06)
[2018-08-14] MEDS: LOSARTAN POTASSIUM 25 MG TABLET PO SCH (10:06)
[2018-08-14] MEDS: valACYclovir HCL 500 MG TABLET (FP) PO SCH (10:06)
[2018-08-14] MEDS: metFORMIN HCL 500 MG TABLET (FP) PO SCH (10:06)
[2018-08-14] MEDS: PERPHENAZINE 4 MG TABLET PO SCH (10:06)
[2018-08-14] MEDS: AMMONIUM LACTATE 12% LOTION 225 GM BOTTLE TP SCH (10:07)
[2018-08-14] MEDS ORDERED: DIVALPROEX SODIUM 500 MG TABLET E.C. PO SCH (10:30)
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
[2018-08-14 13:46] VITALS: BP 129/77; PULSE 79
[2018-08-14] MEDS ORDERED: chlordiazePOXIDE HCL 10 MG CAPSULE PO SCH (17:00)
[2018-08-14] MEDS ORDERED: chlordiazePOXIDE HCL 10 MG CAPSULE PO PRN (17:00)
[2018-08-15] MEDS ORDERED: chlordiazePOXIDE HCL 10 MG CAPSULE PO SCH (17:00)
== END 2018-08-14 14:01 | disposition other institution (70) | DRG 774 ==
LOC: YASAS 08:34 → Y3N 10:47
PROVIDERS: ADMIT Surgery; ATTEND Surgery
PROC: HZ2ZZZZ Detoxification Services for Substance Abuse Treatment (ICD-10-PCS; principal; 2018-08-12)
DX: F10.230 Alcohol dependence with withdrawal, uncomplicated (principal); F14.20 Cocaine dependence, uncomplicated; F12.20 Cannabis dependence, uncomplicated; F17.210 Nicotine dependence, cigarettes, uncomplicated; F31.9 Bipolar disorder, unspecified; I10 Essential (primary) hypertension; K21.9 Gastro-esophageal reflux disease without esophagitis; E10.42 Type 1 diabetes mellitus with diabetic polyneuropathy; Z79.4 Long term (current) use of insulin; R55 Syncope and collapse; Z91.5 Personal history of self-harm
CPT/HCPCS: 36415; 80053; 80164; 81003; 82962; 85027; 86593; 87389

== ENCOUNTER 2018-08-14 13:43 | Inpatient (IN) | payer OTHER ==
[2018-08-14 14:20] VITALS: BP 145/75; PULSE 70; TEMP 97.4; BMI 27.1
--- NOTE | 2018-08-14 14:38 | HP ---
[facility] Rehab Assess/Revision - Admission History Admitted to Rehab from: [facility] Date of Admission to Rehab: 08/14/18 - Vital signs Vital Signs: Vital Signs Period Temp Pulse Resp BP Sys/Mishra Pulse Ox Last 24 Hr 97.4 F 70 18 145/75 - Findings Detox History & Physical reviewed: Yes Concur with findings: Yes Comments/Additional Findings: transferred from detox to rehab admission as per protocol Inpatient Rehab Admission - Rehab Decision to Admit Inpatient rehab admission?: Yes - Initial Determination Are CD services needed?: Yes Free of communicable disease: Yes Not in need of hospitalization: Yes - Rehab Admission Criteria Previous failed treatment: Yes Poor recovery environment: Yes Comorbidities: Yes Lacks judgement: No Patient is meeting Inpatient Rehab admission criteria:: Yes
[2018-08-14] MEDS ORDERED: IBUPROFEN 400 MG TABLET (FP) PO PRN (14:39)
[2018-08-14] MEDS ORDERED: guaiFENesin 200 MG/10 ML 10 ML UNIT-DOSE CUPS PO PRN (14:39)
[2018-08-14] MEDS ORDERED: MAGNESIUM HYDROX 2400MG/30ML ORAL SUSPENSION 30 ML CUP PO PRN (14:39)
[2018-08-14] MEDS ORDERED: ACETAMINOPHEN 325 MG TABLET (FP) PO PRN (14:39)
[2018-08-14] MEDS ORDERED: MAG HYDROX/AL HYDROX/SIMETH 30 ML UNIT-DOSE CUP PO PRN (14:39)
[2018-08-14] MEDS ORDERED: P-EPHED 60MG/TRIPROLIDI 2.5MG TABLET PO PRN (14:39)
[2018-08-14] MEDS ORDERED: NICOTINE POLACRILEX 2 MG GUM BUC PRN (14:39)
[2018-08-14] MEDS ORDERED: MENTHOL/PHENOL 1 EACH UD MM PRN (14:39)
[2018-08-14] MEDS ORDERED: MAGNESIUM CITRATE 300 ML BOTTLE PO PRN (14:39)
[2018-08-14] MEDS ORDERED: LOPERAMIDE HCL 2 MG CAPSULE PO PRN (14:39)
[2018-08-14] MEDS ORDERED: NICOTINE 14 MG/24 HOURS TOPICAL PATCH TD PRN (14:39)
[2018-08-14] MEDS ORDERED: ALBUTEROL SO4 8 GM HFA INHALER IH PRN (14:41)
[2018-08-14] MEDS ORDERED: INSULIN (NOVOLOG) ASPART 100 UNITS/ML 10ML VIAL SQ SCH (16:30)
[2018-08-14] MEDS ORDERED: INSULIN SLIDING SCALE (NOVOLOG) 1 VIAL SQ SCH (16:30)
[2018-08-14] MEDS ORDERED: metFORMIN HCL 500 MG TABLET (FP) PO SCH (16:30)
--- NOTE | 2018-08-14 18:56 | PN ---
[facility] Progress Note Note: Report received from Rn re; patient left AMA , and refuse to see the provider.
[2018-08-14] MEDS ORDERED: MELATONIN 5 MG TABLETS PO PRN (22:00)
[2018-08-14] MEDS ORDERED: valACYclovir HCL 500 MG TABLET (FP) PO SCH (22:00)
[2018-08-14] MEDS ORDERED: PERPHENAZINE 4 MG TABLET PO SCH (22:00)
[2018-08-14] MEDS ORDERED: GABAPENTIN 100 MG CAPSULE (FP) PO SCH (22:00)
[2018-08-14] MEDS ORDERED: THIAMINE HCL 100 MG TABLET (FP) PO SCH (22:00)
[2018-08-14] MEDS ORDERED: INSULIN (LEVEMIR) 100 UNITS/ML UNITS SQ SCH (22:00)
[2018-08-14] MEDS ORDERED: DIVALPROEX SODIUM 500 MG TABLET E.C. PO SCH (22:00)
[2018-08-15] MEDS ORDERED: LOSARTAN POTASSIUM 25 MG TABLET PO SCH ×2 (10:00)
[2018-08-15] MEDS ORDERED: PRENATAL VITAMINS W/ FOLIC ACID TABLET (FP) PO SCH (10:00)
== END 2018-08-14 18:30 | disposition left against medical advice (07) | DRG 770 ==
LOC: YASAS 13:43 → Y3W 13:44
PROVIDERS: ADMIT Neuromusculoskeletal Medicine & OMM; ATTEND Neuromusculoskeletal Medicine & OMM
PROC: HZ42ZZZ Group Counseling for Substance Abuse Treatment, Cognitive-Behavioral (ICD-10-PCS; principal; 2018-08-14)
DX: F10.20 Alcohol dependence, uncomplicated (principal); F14.20 Cocaine dependence, uncomplicated; F12.20 Cannabis dependence, uncomplicated; F17.210 Nicotine dependence, cigarettes, uncomplicated; F31.9 Bipolar disorder, unspecified; I10 Essential (primary) hypertension; E11.9 Type 2 diabetes mellitus without complications; G62.9 Polyneuropathy, unspecified; Z79.4 Long term (current) use of insulin; Z86.19 Personal history of other infectious and parasitic diseases
CPT/HCPCS: 82962

== ENCOUNTER 2018-08-28 19:40 | Inpatient (IN) | payer OTHER ==
--- NOTE | 2018-08-28 23:42 | HP ---
CIWA Score Nausea/Vomitin-No Nausea/No Vomiting Muscle Tremors: None Anxiety: 4-Mod. Anxious/Guarded Agitation: 4-Moderately Restless Paroxysmal Sweats: 3 Orientation: 0-Oriented Tacttile Disturbances: 0-None Auditory Disturbances: 0-None Visual Disturbances: 0-None Headache: 1-Very Mild CIWA-Ar Total Score: 12 - Admission Criteria OAS Guidelines: Admission for Medically Managed Detox: Requires at least one of the followin. CIWA greater than 12 2. Seizures within the past 24 hours 3. Delirium tremens within the past 24 hours 4. Hallucinations within the past 24 hours 5. Acute intervention needed for co occurring medical disorder 6. Acute intervention needed for co occurring psychiatric disorder 7. Severe withdrawal that cannot be handled at a lower level of care (continued vomiting, continued diarrhea, abnormal vital signs) requiring intravenous medication and/or fluids 8. Patient presents the following: CIWA greater than 12, Acute intervention needed for co-occurring med or psych disorder (bipolar, psychosis, htn, dm) Admission Criteria Met: Admission criteria met Admission ROS [facility] Chief Complaint: c/o worsening withdrawal sx's. seeking detox txment Allergies/Adverse Reactions: Allergies Allergy/AdvReac Type Severity Reaction Status Date / Time lamotrigine [From Lamictal] Allergy Severe Rash Verified 08/28/18 21:36 Penicillins Allergy Severe Hives Verified 08/28/18 21:36 History of Present Illness: 38 y.o. male with hx/o alcoholism here for detox. client was dc 08/14/18 after attempting rehab after a 2 day detox. client presents today with c/o worsening withdrawal sx's. ciwa 12. reports drinking daily last drink earlier today. denies hx/o black outs, seizure d/o, avh, si/hi. denies legals. Exam Limitations: No Limitations - Ebola screening Have you traveled outside of the country in the last 21 days: No Have you had contact with anyone from an Ebola affected area: No Do you have a fever: No - Review of Systems Constitutional: Chills, Loss of Appetite, Malaise EENT: reports: No Symptoms Reported, Other (missing teeth) Respiratory: reports: No Symptoms reported Cardiac: reports: No Symptoms Reported GI: reports: Poor Appetite, Poor Fluid Intake : reports: No Symptoms Reported Musculoskeletal: reports: Back Pain Integumentary: reports: No Symptoms Reported Neuro: reports: Numbness (ble) Endocrine: reports: Other (hx/o dm) Hematology: reports: No Symptoms Reported Psychiatric: reports: Orientated x3, Agitated (irritable), Anxious Other Systems: Reviewed and Negative Patient History - Patient Medical History Hx Anemia: No Hx Asthma: No Hx Chronic Obstructive Pulmonary Disease (COPD): No Hx Cancer: No Hx Cardiac Disorders: No Hx Congestive Heart Failure: No Hx Hypertension: Yes (on Cozaar) Hx Hypercholesterolemia: No Hx Pacemaker: No HX Cerebrovascular Accident: No Hx Seizures: No Hx Dementia: No Hx Diabetes: Yes (IDDM) Hx Gastrointestinal Disorders: Yes (GERD) Hx Liver Disease: No Hx Genitourinary Disorders: No Hx Sexually Transmitted Disorders: Yes (herpes) Hx Renal Disease (ESRD): No Hx Thyroid Disease: No Hx Human Immunodeficiency Virus (HIV): No (last 2017 negative) Hx Hepatitis C: No Hx Depression: No Hx Suicide Attempt: Yes (overdose in 2003) Hx Bipolar Disorder: Yes (on med) Hx Schizophrenia: No - Patient Surgical History Past Surgical History: Yes Hx Neurologic Surgery: No Hx Cataract Extraction: No Hx Cardiac Surgery: No Hx Lung Surgery: No Hx Breast Surgery: No Hx Breast Biopsy: No Hx Abdominal Surgery: No Hx Appendectomy: No Hx Cholecystectomy: No Hx Genitourinary Surgery: No Hx Section: Yes (x 2 last 2005) Hx Orthopedic Surgery: No Other Surgical History: Pt had a leep procedure Anesthesia Reaction: No - PPD History Previous Implant?: Yes Documented Results: Negative w/proof Implanted On Prior [facility] Admission?: Yes Date: 08/14/18 Results: no reading PPD to be Administered?: No - Reproductive History Patient is a Female of Child Bearing Age (11 -55 yrs old): Yes Last Menstrual Period: 08/20/18 Patient : No (neg [facility]) - Smoking Cessation Smoking history: Current every day smoker Have you smoked in the past 12 months: Yes Aproximately how many cigarettes per day: 6 Cigars Per Day: 0 Hx Chewing Tobacco Use: No Initiated information on smoking cessation: Yes 'Breaking Loose' booklet given: 08/28/18 - Substance & Tx. History Hx Alcohol Use: Yes Hx Substance Use: Yes Substance Use Type: Alcohol, Cocaine Hx Substance Use Treatment: Yes ([facility]) - Substances abused Alcohol Substance route: Oral Frequency: Daily Amount used: 5TH VODKA Age of first use: 11 Date of last use: 08/28/18 Cocaine Substance route: Smoking Frequency: Daily Amount used: $200 Age of first use: 26 Date of last use: 08/27/18 Family Disease History - Family Disease History Family Disease History: Other: Father (alcohol,decased), Mother () Admission Physical Exam [facility] - Vital Signs Vital Signs: Vital Signs - 24 hr 08/28/18 21:33 Temperature 97.5 F L Pulse Rate 78 Respiratory 18 Rate Blood Pressure 141/82 - Physical General Appearance: Yes: Irritable, Anxious HEENTM: Yes: EOMI, Normocephalic, Normal Voice, CARMEN, Pharynx Normal, Other ( missing teeth) Respiratory: Yes: Chest Non-Tender, Lungs Clear, Normal Breath Sounds, No Respiratory Distress, No Accessory Muscle Use Neck: Yes: No masses,lesions,Nodules, Supple, Trachea in good position Breast: Yes: Breast Exam Deferred Cardiology: Yes: Regular Rhythm, Regular Rate, S1, S2 Abdominal: Yes: Normal Bowel Sounds, Non Tender, Soft Genitourinary: Yes: Within Normal Limits (no c/o) Back: Yes: Normal Inspection Musculoskeletal: Yes: full range of Motion, Gait Steady Extremities: Yes: Normal Capillary Refill, Normal Range of Motion, Non-Tender Neurological: Yes: Fully Oriented, Alert, Motor Strength 5/5 Integumentary: Yes: Dry, Warm Lymphatic: Yes: Within Normal Limits - Diagnostic (1) Alcohol dependence with uncomplicated withdrawal Current Visit: Yes Status: Acute (2) Bipolar disorder Current Visit: Yes Status: Chronic (3) Cocaine dependence Current Visit: Yes Status: Chronic (4) Nicotine dependence Current Visit: Yes Status: Chronic Qualifiers: Nicotine product type: cigarettes Substance use status: in withdrawal Qualified Code(s): F17.213 - Nicotine dependence, cigarettes, with withdrawal (5) Hypertension Current Visit: Yes Status: Chronic Qualifiers: Hypertension type: essential hypertension Qualified Code(s): I10 - Essential (primary) hypertension (6) IDDM (insulin dependent diabetes mellitus) Current Visit: Yes Status: Chronic (7) Neuropathy Current Visit: Yes Status: Chronic Cleared for Admission [facility] - Detox or Rehab [facility] Level of Care: Medically Managed Detox Regimen/Protocol: Librium Claeared for Rehab Admission: No Breathalyzer - Breathalyzer Breathalyzer: 0 POC Urine test - Test device test lot number: [id number] Expiration date: 01/27/20 - Control test control: Yes - Result Urine Test Results: Negative - NO line present Urine Drug Screen - Test Device Lot number: [id number] Expiration date: 04/27/20 - Control Is test valid?: Yes - Results Drug screen NEGATIVE: No Urine drug screen results: TERENCE-Cocaine Inpatient Rehab Admission - Rehab Decision to Admit Inpatient rehab admission?: No
[2018-08-28] MEDS ORDERED: MENTHOL/PHENOL 1 EACH UD MM PRN (23:50)
[2018-08-28] MEDS ORDERED: IBUPROFEN 400 MG TABLET (FP) PO PRN (23:50)
[2018-08-28] MEDS ORDERED: ACETAMINOPHEN 325 MG TABLET (FP) PO PRN ×2 (23:50)
[2018-08-28] MEDS ORDERED: DICYCLOMINE HCL 10 MG CAPSULE PO PRN (23:50)
[2018-08-28] MEDS ORDERED: MELATONIN 5 MG TABLETS PO PRN (23:50)
[2018-08-28] MEDS ORDERED: chlordiazePOXIDE HCL 25 MG CAPSULE PO PRN (23:50)
[2018-08-28] MEDS ORDERED: MAGNESIUM CITRATE 300 ML BOTTLE PO PRN (23:50)
[2018-08-28] MEDS ORDERED: ONDANSETRON *ODT* 4 MG TABLET SL PRN (23:50)
[2018-08-28] MEDS ORDERED: hydrOXYzine PAMOATE 25 MG CAPSULE (FP) PO PRN (23:50)
[2018-08-28] MEDS ORDERED: guaiFENesin 200 MG/10 ML 10 ML UNIT-DOSE CUPS PO PRN (23:50)
[2018-08-28] MEDS ORDERED: P-EPHED 60MG/TRIPROLIDI 2.5MG TABLET PO PRN (23:50)
[2018-08-28] MEDS ORDERED: NICOTINE POLACRILEX 2 MG GUM BUC PRN (23:50)
[2018-08-28] MEDS ORDERED: MAG HYDROX/AL HYDROX/SIMETH 30 ML UNIT-DOSE CUP PO PRN (23:50)
[2018-08-28] MEDS ORDERED: METHOCARBAMOL 500 MG TABLET PO PRN (23:50)
[2018-08-28] MEDS ORDERED: MAGNESIUM HYDROX 2400MG/30ML ORAL SUSPENSION 30 ML CUP PO PRN (23:50)
[2018-08-28] MEDS ORDERED: BISMUTH SUBSALICYLATE 524 MG/30 ML UD PO PRN (23:50)
[2018-08-29] MEDS: chlordiazePOXIDE HCL 25 MG CAPSULE PO SCH ×5 (01:46→22:29)
[2018-08-29] MEDS: GABAPENTIN 100 MG CAPSULE (FP) PO SCH ×4 (01:48→21:53)
[2018-08-29] MEDS: INSULIN SLIDING SCALE (NOVOLOG) 1 VIAL SQ SCH ×3 (07:23→17:54)
[2018-08-29] MEDS: metFORMIN HCL 500 MG TABLET (FP) PO SCH ×2 (07:23→17:49)
[2018-08-29] MEDS: valACYclovir HCL 500 MG TABLET (FP) PO SCH ×2 (10:09→21:53)
[2018-08-29] MEDS: LOSARTAN POTASSIUM 25 MG TABLET PO SCH (10:09)
[2018-08-29] MEDS: PRENATAL VITAMINS W/ FOLIC ACID TABLET (FP) PO SCH (10:09)
[2018-08-29] MEDS: NICOTINE 14 MG/24 HOURS TOPICAL PATCH TD SCH (10:10)
--- NOTE | 2018-08-29 10:42 | PN ---
[facility] CIWA - CIWA Score Nausea/Vomitin-No Nausea/No Vomiting Muscle Tremors: 3 Anxiety: 3 Agitation: 4-Moderately Restless Paroxysmal Sweats: 3 Orientation: 0-Oriented Tacttile Disturbances: 0-None Auditory Disturbances: 0-None Visual Disturbances: 0-None Headache: 0-None Present CIWA-Ar Total Score: 13 [facility] Progress Note (SOAP) Subjective: shakes sweats irritable body aches interrupted sleep agitation Objective: 08/29/18 10:41 Vital Signs Temperature 98.1 F 08/29/18 09:19 Pulse Rate 65 08/29/18 09:19 Respiratory Rate 18 08/29/18 09:19 Blood Pressure 128/65 08/29/18 09:19 O2 Sat by Pulse Oximetry (%) Laboratory Tests 08/29/18 07:14 POC Glucometer 189 rest of labs pending aaox3 lying in bed no acute distress Assessment: 08/29/18 10:41 withdrawal sx Plan: continue detox increase fluids labs results pending
[2018-08-29 12:25] LABS: URINE APPEARANCE CLEAR; URINE BILIRUBIN NEGATIVE (NEGATIVE); URINE COLOR YELLOW; URINE GLUCOSE (UA) NEGATIVE (NEGATIVE); URINE KETONE NEGATIVE (NEGATIVE); URINE LEUK ESTERASE NEGATIVE (NEGATIVE); URINE NITRITE NEGATIVE (NEGATIVE); URINE PROTEIN NEGATIVE (NEGATIVE)
[2018-08-29 12:31] LABS: HEMATOCRIT 41.4 % (32.4-45.2); HEMOGLOBIN 13.8 GM/dL (10.7-15.3); MCH 31.6 pg (25.7-33.7); MCHC 33.4 g/dl (32.0-36.0); MEAN CELL VOLUME 94.6 fl (80-96); MEAN PLT VOLUME 8.8 fl (7.5-11.1); PLATELET COUNT 353 K/MM3 (134-434); RBC 4.38 M/mm3 (3.60-5.2); RDW 14.1 % (11.6-15.6); WHITE BLOOD COUNT 6.1 K/mm3 (4.0-10.0)
[2018-08-29 13:01] LABS: ALBUMIN 3.2 g/dl (3.4-5.0); ALK PHOS 89 U/L (45-117); ANION GAP 8 MMOL/L (8-16); BILIRUBIN,TOTAL 0.2 mg/dL (0.2-1); BLOOD UREA NITROGEN 14 mg/dL (7-18); CHLORIDE 102 mmol/L (98-107); CO2 29 mmol/L (21-32); CREATININE 0.9 mg/dL (0.55-1.3); GLUCOSE,RANDOM 205 mg/dL (74-106); POTASSIUM 4.1 mmol/L (3.5-5.1); SGOT/AST 15 U/L (15-37); SGPT/ALT 22 U/L (13-61); SODIUM 138 mmol/L (136-145); TOT PROT 6.9 g/dl (6.4-8.2)
[2018-08-29] MEDS: ALBUTEROL SO4 8 GM HFA INHALER IH PRN (14:00)
--- NOTE | 2018-08-29 15:05 | CONSULT ---
[facility] Psychiatric Consult - Data Date of interview: 08/29/18 Admission source: Self-referred Identifying data: Ms Warner is a 38 years old single Black female, mother of 2 adpted children, unemployed with no source of income, homeless seeking detox treatment for alcohol and cocaine and k2 Medical History: Significant for hypertension, type 2 diabetes mellitus, diabetic neuropathy, history of treatment for genital herpes and x2, and leep procedure. Smokes 6 cigarettes daily Psychiatric History: Reports MDD in 2003 for SA OD after father , Bip in 2007. Mult adm [facility], [facility] 5 years ago. [facility] Calles 2 months ago. meds: Depakote 500 mg po BID, Trilafon 8 g po BID and Vistaril 150 mg HS. Physical/Sexual Abuse/Trauma History: Denies history of emotional, physical and sexual abuse as DV relationship Additional Comment: Reports history of multiple previos arrests including one felony convictio.n Told senior writer that she served 2 years in jail and she was released in 2012. Mental Status Exam - Mental Status Exam Alert and Oriented to: Time, Place, Person Cognitive Function: Fair Patient Appearance: Well Groomed Mood: Hopeful, Euthymic Affect: Constricted Patient Behavior: Cooperative Speech Pattern: Clear Voice Loudness: Normal Thought Process: Intact, Goal Oriented Hallucinations: Denies Suicidal Ideation: Denies Homicidal Ideation: Denies Insight/Judgement: Fair Sleep: Poorly Appetite: Poor Muscle strength/Tone: Normal Gait/Station: Normal Psychiatric Findings - Problem List ([place] 1, 2,3) (1) Bipolar disorder Current Visit: Yes Status: Chronic (2) Schizoaffective disorder Current Visit: Yes Status: Ruled-out (3) Substance-induced sleep disorder Current Visit: Yes Status: Acute (4) Alcohol dependence with uncomplicated withdrawal Current Visit: Yes Status: Acute (5) Cocaine dependence Current Visit: Yes Status: Chronic (6) Nicotine dependence Current Visit: Yes Status: Chronic Qualifiers: Nicotine product type: cigarettes Substance use status: in withdrawal Qualified Code(s): F17.213 - Nicotine dependence, cigarettes, with withdrawal (7) Hypertension Current Visit: Yes Status: Chronic Qualifiers: Hypertension type: essential hypertension Qualified Code(s): I10 - Essential (primary) hypertension (8) IDDM (insulin dependent diabetes mellitus) Current Visit: Yes Status: Chronic (9) Neuropathy Current Visit: Yes Status: Chronic - Initial Treatment Plan Initial Treatment Plan: 1) Continue Depakote 500 mg po BID, Trilafon 8 mg po BID and Vistaril 150 mg estelita HS. 2) Continue inpatient detoxification
[2018-08-29] MEDS: PERPHENAZINE 4 MG TABLET PO SCH (21:54)
[2018-08-29] MEDS: hydrOXYzine PAMOATE 50 MG CAPSULE (FP) PO PRN (21:54)
[2018-08-29] MEDS: DIVALPROEX SODIUM 500 MG TABLET E.C. PO SCH (21:54)
[2018-08-29] MEDS: INSULIN (LEVEMIR) 100 UNITS/ML UNITS SQ SCH (21:55)
[2018-08-29] MEDS: THIAMINE HCL 100 MG TABLET (FP) PO SCH (22:29)
[2018-08-30] MEDS: chlordiazePOXIDE HCL 25 MG CAPSULE PO SCH ×3 (06:18→17:39)
[2018-08-30] MEDS: GABAPENTIN 100 MG CAPSULE (FP) PO SCH ×3 (06:19→21:04)
[2018-08-30] MEDS: metFORMIN HCL 500 MG TABLET (FP) PO SCH ×2 (07:07→17:39)
[2018-08-30] MEDS: INSULIN SLIDING SCALE (NOVOLOG) 1 VIAL SQ SCH ×3 (07:07→17:02)
--- NOTE | 2018-08-30 10:11 | PN ---
[facility] CIWA - CIWA Score Nausea/Vomitin-No Nausea/No Vomiting Muscle Tremors: 3 Anxiety: 2 Agitation: 3 Paroxysmal Sweats: 3 Orientation: 0-Oriented Tacttile Disturbances: 0-None Auditory Disturbances: 0-None Visual Disturbances: 0-None Headache: 0-None Present CIWA-Ar Total Score: 11 S Progress Note (SOAP) Subjective: sweats anxiety body aches feeling much better now that im getting my psych meds Objective: 08/30/18 10:10 Vital Signs Temperature 98.2 F 08/30/18 07:53 Pulse Rate 65 08/30/18 07:53 Respiratory Rate 18 08/30/18 07:53 Blood Pressure 128/69 08/30/18 07:53 O2 Sat by Pulse Oximetry (%) Laboratory Tests 08/29/18 08/29/18 08/29/18 07:00 07:00 07:00 WBC 6.1 RBC 4.38 Hgb 13.8 Hct 41.4 MCV 94.6 MCH 31.6 MCHC 33.4 RDW 14.1 Plt Count 353 MPV 8.8 Sodium 138 Potassium 4.1 Chloride 102 Carbon Dioxide 29 Anion Gap 8 BUN 14 Creatinine 0.9 Creat Clearance w eGFR 69.35 POC Glucometer Random Glucose 205 H Calcium 9.0 Total Bilirubin 0.2 AST 15 ALT 22 Alkaline Phosphatase 89 Total Protein 6.9 Albumin 3.2 L Urine Color Urine Appearance Urine pH Ur Specific [place] Urine Protein Urine Glucose (UA) Urine Ketones Urine Blood Urine Nitrite Urine Bilirubin Urine Urobilinogen Ur Leukocyte Esterase RPR Titer Nonreactive HIV 1&2 Antibody Screen HIV P24 Antigen 08/29/18 08/29/18 08/29/18 07:00 07:14 09:00 WBC RBC Hgb Hct MCV MCH MCHC RDW Plt Count MPV Sodium Potassium Chloride Carbon Dioxide Anion Gap BUN Creatinine Creat Clearance w eGFR POC Glucometer 189 Random Glucose Calcium Total Bilirubin AST ALT Alkaline Phosphatase Total Protein Albumin Urine Color Yellow Urine Appearance Clear Urine pH 6.0 Ur Specific [place] 1.016 Urine Protein Negative Urine Glucose (UA) Negative Urine Ketones Negative Urine Blood Negative Urine Nitrite Negative Urine Bilirubin Negative Urine Urobilinogen 1.0 Ur Leukocyte Esterase Negative RPR Titer HIV 1&2 Antibody Screen Negative HIV P24 Antigen Negative 08/29/18 08/29/18 08/30/18 11:17 16:30 06:17 WBC RBC Hgb Hct MCV MCH MCHC RDW Plt Count MPV Sodium Potassium Chloride Carbon Dioxide Anion Gap BUN Creatinine Creat Clearance w eGFR POC Glucometer 195 190 182 Random Glucose Calcium Total Bilirubin AST ALT Alkaline Phosphatase Total Protein Albumin Urine Color Urine Appearance Urine pH Ur Specific [place] Urine Protein Urine Glucose (UA) Urine Ketones Urine Blood Urine Nitrite Urine Bilirubin Urine Urobilinogen Ur Leukocyte Esterase RPR Titer HIV 1&2 Antibody Screen HIV P24 Antigen aaox3 ambulating no acute distress Assessment: 08/30/18 10:11 withdrawal sx Plan: continue detox increase fluids
[2018-08-30] MEDS: DIVALPROEX SODIUM 500 MG TABLET E.C. PO SCH ×2 (10:35→21:04)
[2018-08-30] MEDS: PRENATAL VITAMINS W/ FOLIC ACID TABLET (FP) PO SCH (10:35)
[2018-08-30] MEDS: PERPHENAZINE 4 MG TABLET PO SCH ×2 (10:35→21:05)
[2018-08-30] MEDS: LOSARTAN POTASSIUM 25 MG TABLET PO SCH (10:35)
[2018-08-30] MEDS: valACYclovir HCL 500 MG TABLET (FP) PO SCH ×2 (10:35→21:19)
[2018-08-30] MEDS: NICOTINE 14 MG/24 HOURS TOPICAL PATCH TD SCH (10:37)
[2018-08-30] MEDS: ALBUTEROL SO4 8 GM HFA INHALER IH PRN (11:46)
[2018-08-30] MEDS: INSULIN (LEVEMIR) 100 UNITS/ML UNITS SQ SCH (21:04)
[2018-08-30] MEDS: THIAMINE HCL 100 MG TABLET (FP) PO SCH (21:05)
[2018-08-30] MEDS: hydrOXYzine PAMOATE 50 MG CAPSULE (FP) PO PRN (21:05)
[2018-08-30] MEDS: chlordiazePOXIDE HCL 10 MG CAPSULE PO SCH (22:42)
[2018-08-30] MEDS ORDERED: chlordiazePOXIDE HCL 10 MG CAPSULE PO PRN (23:00)
[2018-08-31] MEDS: chlordiazePOXIDE HCL 10 MG CAPSULE PO SCH (06:11)
[2018-08-31] MEDS: GABAPENTIN 100 MG CAPSULE (FP) PO SCH (06:11)
[2018-08-31] MEDS: metFORMIN HCL 500 MG TABLET (FP) PO SCH (07:18)
[2018-08-31] MEDS: INSULIN SLIDING SCALE (NOVOLOG) 1 VIAL SQ SCH ×2 (07:19→13:37)
[2018-08-31] MEDS ORDERED: INSULIN (NOVOLOG) ASPART 100 UNITS/ML 10ML VIAL ONE (07:35)
[2018-08-31] MEDS ORDERED: SIMETHICONE 80 MG TAB.CHEW (FP) PO PRN (08:37)
[2018-08-31] MEDS: PERPHENAZINE 4 MG TABLET PO SCH (09:22)
[2018-08-31] MEDS: LOSARTAN POTASSIUM 25 MG TABLET PO SCH (09:22)
[2018-08-31] MEDS: DIVALPROEX SODIUM 500 MG TABLET E.C. PO SCH (09:23)
[2018-08-31] MEDS: PRENATAL VITAMINS W/ FOLIC ACID TABLET (FP) PO SCH (09:23)
[2018-08-31] MEDS: valACYclovir HCL 500 MG TABLET (FP) PO SCH (09:23)
[2018-08-31] MEDS: NICOTINE 14 MG/24 HOURS TOPICAL PATCH TD SCH (09:24)
[2018-08-31 09:43] VITALS: BP 129/74; PULSE 91; TEMP 97.9
--- NOTE | 2018-08-31 09:53 | DS ---
[facility] Detox Discharge Summary Admission Date: 08/29/18 Discharge Date: 08/31/18 - History Present History: Alcohol Dependence, Cannabis Dependence, Cocaine Dependence - Physical Exam Results Vital Signs: Vital Signs Temperature 97.9 F 08/31/18 09:42 Pulse Rate 91 H 08/31/18 09:42 Respiratory Rate 18 08/31/18 09:42 Blood Pressure 129/74 08/31/18 09:42 O2 Sat by Pulse Oximetry (%) - Treatment Hospital Course: Detox Protocol Followed, Detoxed Safely, Responded well, Discharged Condition Good, Rehab Referral Accepted - Medication Discharge Medications: Ambulatory Orders Hydroxyzine HCl 150 mg PO HS 07/09/18 Insulin (Novolog) [Novolog -] 6 units SQ TID 07/09/18 Insulin Glargine,Hum.rec.anlog [Lantus Solostar PEN -] 18 units SQ HS 07/09/18 Perphenazine [Trilafon -] 12 mg PO BID 07/09/18 Albuterol Sulfate Inhaler - [Ventolin HFA Inhaler -] 2 inh PO Q4H PRN #1 inhaler 08/14/18 Divalproex Sodium [Depakote] 500 mg PO BID 08/14/18 Gabapentin [Neurontin -] 100 mg PO Q8H #60 capsule 08/14/18 Losartan Potassium [Cozaar -] 25 mg PO DAILY #14 tablet 08/14/18 Valacyclovir HCl [Valtrex -] 500 mg PO BID 08/14/18 metFORMIN HCL [Metformin HCl] 1,000 mg PO BID #30 tablet 08/14/18 - Diagnosis (1) Alcohol dependence with uncomplicated withdrawal Current Visit: Yes Status: Chronic (2) Substance-induced sleep disorder Current Visit: Yes Status: Acute (3) Bipolar disorder Current Visit: Yes Status: Chronic (4) Cocaine dependence Current Visit: Yes Status: Chronic Qualifiers: Substance use status: uncomplicated Qualified Code(s): F14.20 - Cocaine dependence, uncomplicated (5) Hypertension Current Visit: Yes Status: Chronic Qualifiers: Hypertension type: essential hypertension Qualified Code(s): I10 - Essential (primary) hypertension (6) IDDM (insulin dependent diabetes mellitus) Current Visit: Yes Status: Chronic (7) Neuropathy Current Visit: Yes Status: Chronic (8) Nicotine dependence Current Visit: Yes Status: Chronic Qualifiers: Nicotine product type: cigarettes Substance use status: uncomplicated Qualified Code(s): F17.210 - Nicotine dependence, cigarettes, uncomplicated (9) Schizoaffective disorder Current Visit: Yes Status: Ruled-out (10) Syncope Current Visit: No Status: Acute (11) Bipolar disorder Current Visit: No Status: Chronic (12) Cannabis dependence Current Visit: Yes Status: Chronic (13) Neuropathy Current Visit: Yes Status: Chronic - AMA Did Patient Leave Against Medical Advice: No (pt referred to [facility] rehab)
[2018-08-31] MEDS ORDERED: chlordiazePOXIDE HCL 10 MG CAPSULE PO SCH (23:00)
== END 2018-08-31 12:00 | disposition home or self-care (01) | DRG 774 ==
LOC: YASAS 19:40 → Y6N 08-29 00:10
PROVIDERS: ADMIT Surgery; ATTEND Surgery
PROC: HZ2ZZZZ Detoxification Services for Substance Abuse Treatment (ICD-10-PCS; principal; 2018-08-29)
DX: F10.230 Alcohol dependence with withdrawal, uncomplicated (principal); F14.20 Cocaine dependence, uncomplicated; F12.20 Cannabis dependence, uncomplicated; F17.210 Nicotine dependence, cigarettes, uncomplicated; F19.282 Other psychoactive substance dependence with psychoactive substance-induced sleep disorder; F31.9 Bipolar disorder, unspecified; F25.9 Schizoaffective disorder, unspecified; I10 Essential (primary) hypertension; G62.9 Polyneuropathy, unspecified; E10.9 Type 1 diabetes mellitus without complications; Z79.4 Long term (current) use of insulin; K21.9 Gastro-esophageal reflux disease without esophagitis; Z88.0 Allergy status to penicillin; Z88.8 Allergy status to other drugs, medicaments and biological substances
CPT/HCPCS: 36415; 80053; 81003; 82962; 85027; 86593; 87389

== ENCOUNTER 2018-11-19 10:25 | Inpatient (IN) | payer OTHER ==
[2018-11-19 11:52] VITALS: BMI 26.3
--- NOTE | 2018-11-19 13:18 | HP ---
CIWA Score Nausea/Vomitin Muscle Tremors: 2 Anxiety: 2 Agitation: 2 Paroxysmal Sweats: 1-Minimal Palms Moist Orientation: 0-Oriented Tacttile Disturbances: 1-Very Mild Itch/Numbness Auditory Disturbances: 1-Very Mild Visual Disturbances: 0-None Headache: 2-Mild CIWA-Ar Total Score: 13 - Admission Criteria OASAS Guidelines: Admission for Medically Managed Detox: Requires at least one of the followin. CIWA greater than 12 2. Seizures within the past 24 hours 3. Delirium tremens within the past 24 hours 4. Hallucinations within the past 24 hours 5. Acute intervention needed for co occurring medical disorder 6. Acute intervention needed for co occurring psychiatric disorder 7. Severe withdrawal that cannot be handled at a lower level of care (continued vomiting, continued diarrhea, abnormal vital signs) requiring intravenous medication and/or fluids 8. Admission ROS S - HPI Chief Complaint: i need help to stop drinking alcohol and cocaine Allergies/Adverse Reactions: Allergies Allergy/AdvReac Type Severity Reaction Status Date / Time lamotrigine [From Lamictal] Allergy Severe Rash Verified 11/19/18 10:44 Penicillins Allergy Severe Hives Verified 11/19/18 10:44 History of Present Illness: this 38 years old female with alcohol and cocaine dependence seeking detox, withdrawal symptom, seen [facility] last night history hypertension,type 2 dm, nicotine dependence 6 cigarette ,requested nicotine patch weight loss 20 lbs longest sobriety 2 years plan for rehab after detox Exam Limitations: No Limitations - Ebola screening Have you traveled outside of the country in the last 21 days: No Have you had contact with anyone from an Ebola affected area: No Do you have a fever: No - Review of Systems Constitutional: Loss of Appetite, Night Sweats, Changes in sleep, Unintentional Wgt. Loss EENT: reports: Nose Congestion Respiratory: reports: No Symptoms reported Cardiac: reports: No Symptoms Reported GI: reports: Nausea, Poor Appetite, Indigestion : reports: No Symptoms Reported Musculoskeletal: reports: Back Pain, Muscle Pain Integumentary: reports: Dryness Neuro: reports: Headache, Tremors Endocrine: reports: No Symptoms Reported Hematology: reports: No Symptoms Reported Psychiatric: reports: No Sypmtoms Reported, Judgement Intact, Mood/Affect Appropiate, Orientated x3, Disorientated (bipolar disorder) Other Systems: Reviewed and Negative Patient History - Patient Medical History Hx Anemia: No Hx Asthma: No Hx Chronic Obstructive Pulmonary Disease (COPD): No Hx Cancer: No Hx Cardiac Disorders: No Hx Congestive Heart Failure: No Hx Hypertension: Yes (on med) Hx Hypercholesterolemia: No Hx Pacemaker: No HX Cerebrovascular Accident: No Hx Seizures: No Hx Dementia: No Hx Diabetes: Yes (on metformin) Hx Gastrointestinal Disorders: No Hx Liver Disease: No Hx Genitourinary Disorders: No Hx Sexually Transmitted Disorders: Yes Hx Renal Disease (ESRD): No Hx Thyroid Disease: No Hx Human Immunodeficiency Virus (HIV): No (last 2017 negative) Hx Hepatitis C: No Hx Depression: No Hx Suicide Attempt: Yes (overdose in 2002) Hx Bipolar Disorder: Yes (on med) Hx Schizophrenia: No Other Medical History: no suicidal,no homicidal - Patient Surgical History Past Surgical History: Yes Hx Neurologic Surgery: No Hx Cataract Extraction: No Hx Cardiac Surgery: No Hx Lung Surgery: No Hx Breast Surgery: No Hx Breast Biopsy: No Hx Abdominal Surgery: No Hx Appendectomy: No Hx Cholecystectomy: No Hx Genitourinary Surgery: No Hx Section: Yes (x 2 last 2005) Hx Orthopedic Surgery: No Other Surgical History: Pt had a leep procedure Anesthesia Reaction: No - PPD History Previous Implant?: Yes Documented Results: Negative w/o proof Implanted On Prior R Admission?: Yes Date: 08/14/18 Results: no reading PPD to be Administered?: Yes - Reproductive History Patient is a Female of Child Bearing Age (11 -55 yrs old): Yes Last Menstrual Period: 10/22/18 Patient : No - Smoking Cessation Smoking history: Current every day smoker Have you smoked in the past 12 months: Yes Aproximately how many cigarettes per day: 6 Cigars Per Day: 0 Hx Chewing Tobacco Use: No Initiated information on smoking cessation: Yes 'Breaking Loose' booklet given: 11/19/18 - Substance & Tx. History Hx Alcohol Use: Yes Hx Substance Use: Yes Substance Use Type: Alcohol, Cocaine Hx Substance Use Treatment: Yes ([facility] 08/30/18 TO 08/31/18 NOT COMPLETED) - Substances abused Alcohol Substance route: Oral Frequency: Daily Amount used: 5TH VODKA Age of first use: 11 Date of last use: 11/19/18 Cocaine Substance route: Smoking Frequency: Daily Amount used: $250 Age of first use: 26 Date of last use: 11/17/18 Family Disease History - Family Disease History Family Disease History: Other: Father (alcohol,decased), Mother () [facility] - Vital Signs Vital Signs: Vital Signs - 24 hr 11/19/18 11/19/18 11:44 12:10 Temperature 98.6 F 98.6 F Pulse Rate 61 61 Respiratory 18 18 Rate Blood Pressure 137/88 137/88 - Physical General Appearance: Yes: Moderate Distress, Tremorous, Irritable, Sweating, Anxious HEENTM: Yes: Normal ENT Inspection, CARMEN, Pharynx Normal Respiratory: Yes: Lungs Clear, Normal Breath Sounds, No Respiratory Distress Neck: Yes: Within Normal Limits, Supple, Trachea in good position Breast: Yes: Breast Exam Deferred Cardiology: Yes: Within Normal Limits, Regular Rhythm, Regular Rate, S1, S2 Abdominal: Yes: Within Normal Limits, Normal Bowel Sounds, Non Tender, Flat, Soft Genitourinary: Yes: Within Normal Limits Back: Yes: Muscle Spasm Musculoskeletal: Yes: Back pain, Muscle Pain Extremities: Yes: Tremors Neurological: Yes: office system analyst II-XII NML intact, Fully Oriented, Alert, Motor Strength 5/5 Integumentary: Yes: Dry Lymphatic: Yes: Within Normal Limits - Diagnostic (1) Alcohol dependence with uncomplicated withdrawal Current Visit: Yes Status: Acute (2) Syncope Current Visit: No Status: Acute (3) Bipolar disorder Current Visit: No Status: Chronic (4) Cocaine dependence Current Visit: No Status: Chronic Qualifiers: Substance use status: uncomplicated Qualified Code(s): F14.20 - Cocaine dependence, uncomplicated (5) Hypertension Current Visit: No Status: Chronic Qualifiers: Hypertension type: essential hypertension Qualified Code(s): I10 - Essential (primary) hypertension (6) Neuropathy Current Visit: No Status: Chronic (7) Nicotine dependence Current Visit: No Status: Chronic Qualifiers: Nicotine product type: cigarettes Substance use status: uncomplicated Qualified Code(s): F17.210 - Nicotine dependence, cigarettes, uncomplicated (8) Dehydration Current Visit: Yes Status: Acute (9) DM2 (diabetes mellitus, type 2) Current Visit: Yes Status: Acute Cleared for Admission [facility] - [facility]ox [facility]hab [facility] Level of Care: Medically Managed Detox Regimen/Protocol: Librium Breathalyzer - Breathalyzer Breathalyzer: 0.019 POC Urine test - Test device test lot number: [id number] Expiration date: 01/27/20 - Control test control: Yes Urine Drug Screen - Test Device Lot number: [id number] Expiration date: 07/26/20 - Control Is test valid?: Yes - Results Drug screen NEGATIVE: No Urine drug screen results: [facility]-Coc[facility] Inpatient Rehab Admission - Rehab Decision to Admit Inpatient rehab admission?: No
[2018-11-19] MEDS ORDERED: METHOCARBAMOL 500 MG TABLET PO PRN (13:29)
[2018-11-19] MEDS ORDERED: BISMUTH SUBSALICYLATE 262 MG/15 ML BTL PO PRN (13:29)
[2018-11-19] MEDS ORDERED: chlordiazePOXIDE HCL 25 MG CAPSULE PO PRN (13:29)
[2018-11-19] MEDS ORDERED: MELATONIN 5 MG TABLETS PO PRN (13:29)
[2018-11-19] MEDS ORDERED: IBUPROFEN 400 MG TABLET (FP) PO PRN (13:29)
[2018-11-19] MEDS ORDERED: MAGNESIUM CITRATE 300 ML BOTTLE PO PRN (13:29)
[2018-11-19] MEDS ORDERED: ACETAMINOPHEN 325 MG TABLET (FP) PO PRN ×2 (13:29)
[2018-11-19] MEDS ORDERED: MENTHOL/PHENOL 1 EACH UD MM PRN (13:29)
[2018-11-19] MEDS ORDERED: MAGNESIUM HYDROX 2400MG/30ML ORAL SUSPENSION 30 ML CUP PO PRN (13:29)
[2018-11-19] MEDS ORDERED: hydrOXYzine PAMOATE 25 MG CAPSULE (FP) PO PRN (13:29)
[2018-11-19] MEDS ORDERED: MAG HYDROX/AL HYDROX/SIMETH 30 ML UNIT-DOSE CUP PO PRN (13:29)
[2018-11-19] MEDS ORDERED: ALBUTEROL SO4 8 GM HFA INHALER IH PRN (13:33)
[2018-11-19] MEDS: NICOTINE 21 MG/24 HOURS TOPICAL PATCH TD SCH (14:35)
[2018-11-19 17:19] LABS: HEMATOCRIT 34.3 % (32.4-45.2); HEMOGLOBIN 11.5 GM/dL (10.7-15.3); MCHC 33.6 g/dl (32.0-36.0); MEAN CELL VOLUME 92.4 fl (80-96); MEAN PLT VOLUME 9.1 fl (7.5-11.1); PLATELET COUNT 243 K/MM3 (134-434); RBC 3.72 M/mm3 (3.60-5.2); RDW 13.4 % (11.6-15.6); WHITE BLOOD COUNT 4.8 K/mm3 (4.0-10.0)
[2018-11-19 17:28] LABS: ALBUMIN 2.8 g/dl (3.4-5.0); BILIRUBIN,TOTAL 0.3 mg/dL (0.2-1); BLOOD UREA NITROGEN 9.2 mg/dL (7-18); CREATININE 0.8 mg/dL (0.55-1.3); TOT PROT 6.6 g/dl (6.4-8.2)
[2018-11-19] MEDS: chlordiazePOXIDE HCL 25 MG CAPSULE PO SCH ×2 (17:43→22:58)
[2018-11-19] MEDS: metFORMIN HCL 500 MG TABLET (FP) PO SCH (17:52)
[2018-11-19 17:56] LABS: PH,URINE 5.5 (5.0-8.0); URINE APPEARANCE CLEAR; URINE BILIRUBIN NEGATIVE (NEGATIVE); URINE COLOR YELLOW; URINE GLUCOSE (UA) 3+ (NEGATIVE); URINE KETONE NEGATIVE (NEGATIVE); URINE LEUK ESTERASE NEGATIVE (NEGATIVE); URINE NITRITE NEGATIVE (NEGATIVE); URINE PROTEIN NEGATIVE (NEGATIVE); URINE UROBILINOGEN 0.2 mg/dL (0.2-1.0)
[2018-11-19] MEDS: THIAMINE HCL 100 MG TABLET (FP) PO SCH (22:56)
[2018-11-19] MEDS: GABAPENTIN 300 MG CAPSULE (FP) PO SCH (22:56)
[2018-11-19] MEDS: valACYclovir HCL 500 MG TABLET (FP) PO SCH (22:56)
[2018-11-19] MEDS: RANITIDINE HCL 150 MG TABLET (FP) PO SCH (22:57)
[2018-11-20] MEDS: chlordiazePOXIDE HCL 25 MG CAPSULE PO SCH ×4 (05:56→22:55)
[2018-11-20] MEDS: metFORMIN HCL 500 MG TABLET (FP) PO SCH ×2 (06:46→17:24)
--- NOTE | 2018-11-20 11:42 | PN ---
[facility] CIWA - CIWA Score Nausea/Vomitin-No Nausea/No Vomiting Muscle Tremors: 3 Anxiety: 2 Agitation: 3 Paroxysmal Sweats: 3 Orientation: 0-Oriented Tacttile Disturbances: 0-None Auditory Disturbances: 0-None Visual Disturbances: 0-None Headache: 0-None Present CIWA-Ar Total Score: 11 S Progress Note (SOAP) Subjective: irritable sweats interrupted sleep agitation sleepy Objective: 11/20/18 11:41 Vital Signs Temperature 98.8 F 11/20/18 09:53 Pulse Rate 63 11/20/18 09:53 Respiratory Rate 18 11/20/18 09:53 Blood Pressure 134/73 11/20/18 09:53 O2 Sat by Pulse Oximetry (%) Laboratory Tests 11/19/18 11/19/18 11/19/18 13:20 13:40 13:40 WBC 4.8 RBC 3.72 Hgb 11.5 Hct 34.3 D MCV 92.4 MCH 31.0 MCHC 33.6 RDW 13.4 Plt Count 243 D MPV 9.1 Sodium 138 Potassium 4.0 Chloride 103 Carbon Dioxide 29 Anion Gap 6 L BUN 9.2 Creatinine 0.8 Est GFR (CKD-EPI)AfAm 106.88 Est GFR (CKD-EPI)NonAf 92.22 POC Glucometer 243 Random Glucose 266 H Calcium 9.0 Total Bilirubin 0.3 AST 15 ALT 19 Alkaline Phosphatase 86 Total Protein 6.6 Albumin 2.8 L Urine Color Urine Appearance Urine pH Ur Specific [place] Urine Protein Urine Glucose (UA) Urine Ketones Urine Blood Urine Nitrite Urine Bilirubin Urine Urobilinogen Ur Leukocyte Esterase RPR Titer HIV 1&2 Antibody Screen HIV P24 Antigen 11/19/18 11/19/18 11/19/18 13:40 13:40 17:18 WBC RBC Hgb Hct MCV MCH MCHC RDW Plt Count MPV Sodium Potassium Chloride Carbon Dioxide Anion Gap BUN Creatinine Est GFR (CKD-EPI)AfAm Est GFR (CKD-EPI)NonAf POC Glucometer Random Glucose Calcium Total Bilirubin AST ALT Alkaline Phosphatase Total Protein Albumin Urine Color Yellow Urine Appearance Clear Urine pH 5.5 Ur Specific [place] 1.028 Urine Protein Negative Urine Glucose (UA) 3+ H Urine Ketones Negative Urine Blood Negative Urine Nitrite Negative Urine Bilirubin Negative Urine Urobilinogen 0.2 Ur Leukocyte Esterase Negative RPR Titer Nonreactive HIV 1&2 Antibody Screen Negative HIV P24 Antigen Negative 11/20/18 05:55 WBC RBC Hgb Hct MCV MCH MCHC RDW Plt Count MPV Sodium Potassium Chloride Carbon Dioxide Anion Gap BUN Creatinine Est GFR (CKD-EPI)AfAm Est GFR (CKD-EPI)NonAf POC Glucometer 274 Random Glucose Calcium Total Bilirubin AST ALT Alkaline Phosphatase Total Protein Albumin Urine Color Urine Appearance Urine pH Ur Specific [place] Urine Protein Urine Glucose (UA) Urine Ketones Urine Blood Urine Nitrite Urine Bilirubin Urine Urobilinogen Ur Leukocyte Esterase RPR Titer HIV 1&2 Antibody Screen HIV P24 Antigen aaox3 ambulating no acute distress Assessment: 11/20/18 11:41 withdrawal sx Plan: continue detox increase fluids
--- NOTE | 2018-11-20 13:39 | CONSULT ---
[facility] Psychiatric Consult - Data Date of interview: 11/20/18 Admission source: [facility] Identifying data: Ms Warner is a 38 years old single Black female, mother of 2 adpted children, unemployed with no source of income, homeless seeking detox treatment for alcohol and cocaine and k2 Substance Abuse History: Reports history of alcohol and cocaine use. Refer to addiction counselor's summary for further information Medical History: Significant for hypertension, type 2 diabetes mellitus, diabetic neuropathy, history of treatment for genital herpes and x2, and leep procedure. Smokes 6 cigarettes daily Psychiatric History: Patient was recently seen by information writer on 08/29/18 while admitted to detox in this facility. She is now very irritable, uncooperative in providing information. At last contact she reported being diagnosed with MDD in 2003 after she was admitted for suicidal attemptby overdose after father and Bipolar Disorder in 2007. She has had multiple psychiatric hospitalizations at [facility], [facility]. Most recent admission was to [facility] 5 years ago. She reported that she received OPD care at [facility] Dr Calles 2 months ago and she was prescribed meds: Depakote 500 mg po BID, Trilafon 8 g po BID and Vistaril 150 mg HS. when seen by information writer, she was continued on her medications. She now reports that she was recently at [facility] and was discharged on Celexa 20 mg/day, Depakote 500 mg/bid, Trilafon 12 mg/bid and Atarax 100 mg/hs. At present she is very irritable, uncooperative with providing only limited information Physical/Sexual Abuse/Trauma History: Denies history of emotional, physical and sexual abuse as DV relationship Additional Comment: Reports history of multiple previos arrests including one felony convictio.n Told information writer that [facility] and she was released in 2012. Mental Status Exam - Mental Status Exam Alert and Oriented to: Time, Place, Person Cognitive Function: Fair Patient Appearance: Disheveled Mood: Hostile, Irritable Affect: Appropriate Patient Behavior: Uncooperative Speech Pattern: Clear Voice Loudness: Normal Thought Process: Intact, Goal Oriented Hallucinations: Denies Suicidal Ideation: Denies Homicidal Ideation: Denies Insight/Judgement: Poor Sleep: Poorly Appetite: Good Muscle strength/Tone: Normal Gait/Station: Normal Psychiatric Findings - Problem List ([place] 1, 2,3) (1) Bipolar disorder Current Visit: Yes Status: Chronic (2) Schizoaffective disorder Current Visit: No Status: Resolved (3) Substance induced mood disorder Current Visit: Yes Status: Acute (4) Substance-induced sleep disorder Current Visit: Yes Status: Acute (5) Alcohol dependence with uncomplicated withdrawal Current Visit: Yes Status: Acute (6) Cocaine dependence Current Visit: No Status: Acute Qualifiers: Substance use status: uncomplicated Qualified Code(s): F14.20 - Cocaine dependence, uncomplicated (7) Nicotine dependence Current Visit: No Status: Chronic Qualifiers: Nicotine product type: cigarettes Substance use status: uncomplicated Qualified Code(s): F17.210 - Nicotine dependence, cigarettes, uncomplicated (8) DM2 (diabetes mellitus, type 2) Current Visit: Yes Status: Acute (9) Hypertension Current Visit: No Status: Chronic Qualifiers: Hypertension type: essential hypertension Qualified Code(s): I10 - Essential (primary) hypertension (10) Neuropathy Current Visit: No Status: Chronic - Initial Treatment Plan Initial Treatment Plan: 1) Continue Celexa 20 mg po daily, Depakote 500 mg po BID and Trilafon 12 mg po BID. 2) Continue inpatient detoxification
[2018-11-20] MEDS: GABAPENTIN 300 MG CAPSULE (FP) PO SCH ×2 (15:32→22:55)
[2018-11-20] MEDS: NICOTINE 21 MG/24 HOURS TOPICAL PATCH TD SCH (15:32)
[2018-11-20] MEDS: LOSARTAN POTASSIUM 25 MG TABLET PO SCH (15:32)
[2018-11-20] MEDS: PRENATAL VITAMINS W/ FOLIC ACID TABLET (FP) PO SCH (15:32)
[2018-11-20] MEDS: RANITIDINE HCL 150 MG TABLET (FP) PO SCH ×2 (15:33→22:55)
[2018-11-20] MEDS: CITALOPRAM HYDROBROMIDE 20 MG TABLET (FP) PO SCH (15:33)
[2018-11-20] MEDS: valACYclovir HCL 500 MG TABLET (FP) PO SCH ×2 (15:33→22:55)
[2018-11-20] MEDS: INSULIN SLIDING SCALE (NOVOLOG) 1 VIAL SQ SCH (17:23)
[2018-11-20] MEDS: PERPHENAZINE 4 MG TABLET PO SCH (22:55)
[2018-11-20] MEDS: DIVALPROEX SODIUM 500 MG TABLET E.C. PO SCH (22:56)
[2018-11-20] MEDS: INSULIN (LEVEMIR) 100 UNITS/ML UNITS SQ SCH (22:56)
[2018-11-20] MEDS: THIAMINE HCL 100 MG TABLET (FP) PO SCH (22:57)
[2018-11-21] MEDS: chlordiazePOXIDE HCL 25 MG CAPSULE PO SCH ×2 (06:05→10:54)
[2018-11-21] MEDS: metFORMIN HCL 500 MG TABLET (FP) PO SCH ×2 (06:43→17:44)
[2018-11-21] MEDS ORDERED: INSULIN SLIDING SCALE (NOVOLOG) 1 VIAL SQ ONE (07:49)
[2018-11-21] MEDS: INSULIN SLIDING SCALE (NOVOLOG) 1 VIAL SQ SCH ×2 (07:53→17:46)
[2018-11-21] MEDS: CITALOPRAM HYDROBROMIDE 20 MG TABLET (FP) PO SCH (10:52)
[2018-11-21] MEDS: LOSARTAN POTASSIUM 25 MG TABLET PO SCH (10:52)
[2018-11-21] MEDS: GABAPENTIN 300 MG CAPSULE (FP) PO SCH ×2 (10:52→23:29)
[2018-11-21] MEDS: DIVALPROEX SODIUM 500 MG TABLET E.C. PO SCH ×2 (10:52→23:27)
[2018-11-21] MEDS: RANITIDINE HCL 150 MG TABLET (FP) PO SCH ×2 (10:52→23:27)
[2018-11-21] MEDS: PERPHENAZINE 4 MG TABLET PO SCH ×2 (10:53→23:29)
[2018-11-21] MEDS: NICOTINE 21 MG/24 HOURS TOPICAL PATCH TD SCH (10:53)
[2018-11-21] MEDS: valACYclovir HCL 500 MG TABLET (FP) PO SCH ×2 (10:53→23:27)
[2018-11-21] MEDS: PRENATAL VITAMINS W/ FOLIC ACID TABLET (FP) PO SCH (10:56)
--- NOTE | 2018-11-21 13:55 | PN ---
S CIWA - CIWA Score Nausea/Vomitin-No Nausea/No Vomiting Muscle Tremors: 3 Anxiety: 2 Agitation: 3 Paroxysmal Sweats: No Perspiration Orientation: 0-Oriented Tacttile Disturbances: 0-None Auditory Disturbances: 0-None Visual Disturbances: 0-None Headache: 0-None Present CIWA-Ar Total Score: 8 BHS Progress Note (SOAP) Subjective: irritable agitation tired Objective: 11/21/18 13:54 Vital Signs Temperature 98.0 F 11/21/18 10:00 Pulse Rate 71 11/21/18 10:00 Respiratory Rate 17 11/21/18 10:00 Blood Pressure 114/50 L 11/21/18 10:00 O2 Sat by Pulse Oximetry (%) Laboratory Tests 11/19/18 11/19/18 11/19/18 13:20 13:40 13:40 WBC 4.8 RBC 3.72 Hgb 11.5 Hct 34.3 D MCV 92.4 MCH 31.0 MCHC 33.6 RDW 13.4 Plt Count 243 D MPV 9.1 Sodium 138 Potassium 4.0 Chloride 103 Carbon Dioxide 29 Anion Gap 6 L BUN 9.2 Creatinine 0.8 Est GFR (CKD-EPI)AfAm 106.88 Est GFR (CKD-EPI)NonAf 92.22 POC Glucometer 243 Random Glucose 266 H Calcium 9.0 Total Bilirubin 0.3 AST 15 ALT 19 Alkaline Phosphatase 86 Total Protein 6.6 Albumin 2.8 L Urine Color Urine Appearance Urine pH Ur Specific [place] Urine Protein Urine Glucose (UA) Urine Ketones Urine Blood Urine Nitrite Urine Bilirubin Urine Urobilinogen Ur Leukocyte Esterase RPR Titer HIV 1&2 Antibody Screen HIV P24 Antigen 11/19/18 11/19/18 11/19/18 13:40 13:40 17:18 WBC RBC Hgb Hct MCV MCH MCHC RDW Plt Count MPV Sodium Potassium Chloride Carbon Dioxide Anion Gap BUN Creatinine Est GFR (CKD-EPI)AfAm Est GFR (CKD-EPI)NonAf POC Glucometer Random Glucose Calcium Total Bilirubin AST ALT Alkaline Phosphatase Total Protein Albumin Urine Color Yellow Urine Appearance Clear Urine pH 5.5 Ur Specific [place] 1.028 Urine Protein Negative Urine Glucose (UA) 3+ H Urine Ketones Negative Urine Blood Negative Urine Nitrite Negative Urine Bilirubin Negative Urine Urobilinogen 0.2 Ur Leukocyte Esterase Negative RPR Titer Nonreactive HIV 1&2 Antibody Screen Negative HIV P24 Antigen Negative 11/20/18 11/20/18 11/20/18 05:55 16:40 21:32 WBC RBC Hgb Hct MCV MCH MCHC RDW Plt Count MPV Sodium Potassium Chloride Carbon Dioxide Anion Gap BUN Creatinine Est GFR (CKD-EPI)AfAm Est GFR (CKD-EPI)NonAf POC Glucometer 274 286 280 Random Glucose Calcium Total Bilirubin AST ALT Alkaline Phosphatase Total Protein Albumin Urine Color Urine Appearance Urine pH Ur Specific [place] Urine Protein Urine Glucose (UA) Urine Ketones Urine Blood Urine Nitrite Urine Bilirubin Urine Urobilinogen Ur Leukocyte Esterase RPR Titer HIV 1&2 Antibody Screen HIV P24 Antigen 11/21/18 06:03 WBC RBC Hgb Hct MCV MCH MCHC RDW Plt Count MPV Sodium Potassium Chloride Carbon Dioxide Anion Gap BUN Creatinine Est GFR (CKD-EPI)AfAm Est GFR (CKD-EPI)NonAf POC Glucometer 240 Random Glucose Calcium Total Bilirubin AST ALT Alkaline Phosphatase Total Protein Albumin Urine Color Urine Appearance Urine pH Ur Specific [place] Urine Protein Urine Glucose (UA) Urine Ketones Urine Blood Urine Nitrite Urine Bilirubin Urine Urobilinogen Ur Leukocyte Esterase RPR Titer HIV 1&2 Antibody Screen HIV P24 Antigen labs noted [id number] ambulating no acute distress Assessment: 11/21/18 13:54 mild withdrawal sx Plan: continue detox increase fluids
[2018-11-21] MEDS ORDERED: chlordiazePOXIDE HCL 10 MG CAPSULE PO PRN (17:00)
[2018-11-21] MEDS: chlordiazePOXIDE HCL 10 MG CAPSULE PO SCH ×2 (18:04→23:38)
[2018-11-21] MEDS: THIAMINE HCL 100 MG TABLET (FP) PO SCH (23:28)
[2018-11-21] MEDS: INSULIN (LEVEMIR) 100 UNITS/ML UNITS SQ SCH (23:30)
[2018-11-22] MEDS: metFORMIN HCL 500 MG TABLET (FP) PO SCH ×2 (06:51→17:23)
[2018-11-22] MEDS: chlordiazePOXIDE HCL 10 MG CAPSULE PO SCH ×2 (06:53→12:48)
[2018-11-22] MEDS ORDERED: INSULIN SLIDING SCALE (NOVOLOG) 1 VIAL SQ ONE (07:23)
[2018-11-22] MEDS: INSULIN SLIDING SCALE (NOVOLOG) 1 VIAL SQ SCH ×2 (07:32→17:24)
[2018-11-22] MEDS: GABAPENTIN 300 MG CAPSULE (FP) PO SCH (10:32)
[2018-11-22] MEDS: PRENATAL VITAMINS W/ FOLIC ACID TABLET (FP) PO SCH (10:32)
[2018-11-22] MEDS: valACYclovir HCL 500 MG TABLET (FP) PO SCH (10:32)
[2018-11-22] MEDS: DIVALPROEX SODIUM 500 MG TABLET E.C. PO SCH (10:32)
[2018-11-22] MEDS: RANITIDINE HCL 150 MG TABLET (FP) PO SCH (10:32)
[2018-11-22] MEDS: CITALOPRAM HYDROBROMIDE 20 MG TABLET (FP) PO SCH (10:32)
[2018-11-22] MEDS: PERPHENAZINE 4 MG TABLET PO SCH (10:33)
[2018-11-22] MEDS: NICOTINE 21 MG/24 HOURS TOPICAL PATCH TD SCH (10:33)
[2018-11-22] MEDS: LOSARTAN POTASSIUM 25 MG TABLET PO SCH (10:33)
--- NOTE | 2018-11-22 12:30 | PN ---
BHS CIWA - CIWA Score Nausea/Vomitin-No Nausea/No Vomiting Muscle Tremors: 3 Anxiety: 1-Mildly Anxious Agitation: 1-Slight > Activity Paroxysmal Sweats: 1-Minimal Palms Moist Orientation: 0-Oriented Tacttile Disturbances: 0-None Auditory Disturbances: 0-None Visual Disturbances: 0-None Headache: 0-None Present CIWA-Ar Total Score: 6 BHS Progress Note (SOAP) Subjective: feeling better anxiety Objective: 11/22/18 12:29 Vital Signs Temperature 98.7 F 11/22/18 09:38 Pulse Rate 68 11/22/18 09:38 Respiratory Rate 18 11/22/18 09:38 Blood Pressure 112/61 11/22/18 09:38 O2 Sat by Pulse Oximetry (%) [id number] ambulating no acute distress Assessment: 11/22/18 12:30 mild withdrawal sx Plan: continue detox increase fluids d/c in am
[2018-11-22 14:05] VITALS: BP 125/52; PULSE 70; TEMP 97.9
[2018-11-22] MEDS ORDERED: chlordiazePOXIDE HCL 10 MG CAPSULE PO SCH (17:00)
--- NOTE | 2018-11-22 17:26 | DS ---
[facility] Detox Discharge Summary Admission Date: 11/19/18 Discharge Date: 11/22/18 - History Present History: Alcohol Dependence, Cocaine Dependence - Physical Exam Results Vital Signs: Vital Signs Temperature 97.9 F 11/22/18 14:04 Pulse Rate 70 11/22/18 14:04 Respiratory Rate 18 11/22/18 14:04 Blood Pressure 125/52 L 11/22/18 14:04 O2 Sat by Pulse Oximetry (%) - Treatment Hospital Course: Detox Protocol Followed, Detoxed Safely, Responded well, Discharged Condition Good - Medication Discharge Medications: Ambulatory Orders Hydroxyzine HCl 100 mg PO HS 07/09/18 Insulin Glargine,Hum.rec.anlog [Lantus Solostar PEN -] 18 units SQ HS 07/09/18 Perphenazine [Trilafon -] 12 mg PO BID 07/09/18 Albuterol Sulfate Inhaler - [Ventolin HFA Inhaler -] 2 inh PO Q4H PRN #1 inhaler 08/14/18 Divalproex Sodium [Depakote] 500 mg PO BID 08/14/18 Losartan Potassium [Cozaar -] 25 mg PO DAILY #14 tablet 08/14/18 Valacyclovir HCl [Valtrex -] 500 mg PO BID 08/14/18 Benztropine Mesylate [Cogentin -] 0.5 mg PO BID 11/19/18 Citalopram Hydrobromide [Celexa -] 20 mg PO DAILY 11/19/18 Gabapentin [Neurontin -] 300 mg PO BID 11/19/18 Ranitidine HCl [Zantac] 150 mg PO BID 11/19/18 metFORMIN HCL [Metformin HCl] 1,000 mg PO BID 11/19/18 - Diagnosis (1) Alcohol dependence with uncomplicated withdrawal Current Visit: Yes Status: Acute (2) DM2 (diabetes mellitus, type 2) Current Visit: Yes Status: Acute (3) Cocaine dependence Current Visit: Yes Status: Acute Qualifiers: Substance use status: uncomplicated Qualified Code(s): F14.20 - Cocaine dependence, uncomplicated (4) Alcohol dependence with uncomplicated withdrawal Current Visit: Yes Status: Chronic (5) Hypertension Current Visit: Yes Status: Chronic Qualifiers: Hypertension type: essential hypertension Qualified Code(s): I10 - Essential (primary) hypertension (6) Neuropathy Current Visit: Yes Status: Chronic (7) Nicotine dependence Current Visit: Yes Status: Chronic Qualifiers: Nicotine product type: cigarettes Substance use status: uncomplicated Qualified Code(s): F17.210 - Nicotine dependence, cigarettes, uncomplicated - AMA Did Patient Leave Against Medical Advice: No
--- NOTE | 2018-11-22 17:30 | PN ---
[facility] Progress Note Note: Vital Signs Temperature 97.9 F 11/22/18 14:04 Pulse Rate 70 11/22/18 14:04 Respiratory Rate 18 11/22/18 14:04 Blood Pressure 125/52 L 11/22/18 14:04 O2 Sat by Pulse Oximetry (%) Patient requested early discharge, currently stable.Patient to follow up with primary care provider.
== END 2018-11-22 17:35 | disposition home or self-care (01) | DRG 774 ==
LOC: YASAS 10:25 → Y6N 13:41
PROVIDERS: ADMIT Surgery; ATTEND Surgery
PROC: HZ2ZZZZ Detoxification Services for Substance Abuse Treatment (ICD-10-PCS; principal; 2018-11-19)
DX: F10.230 Alcohol dependence with withdrawal, uncomplicated (principal); F14.20 Cocaine dependence, uncomplicated; F17.210 Nicotine dependence, cigarettes, uncomplicated; F25.9 Schizoaffective disorder, unspecified; F31.9 Bipolar disorder, unspecified; F19.24 Other psychoactive substance dependence with psychoactive substance-induced mood disorder; F19.282 Other psychoactive substance dependence with psychoactive substance-induced sleep disorder; I10 Essential (primary) hypertension; E11.9 Type 2 diabetes mellitus without complications; G62.9 Polyneuropathy, unspecified; E86.0 Dehydration; Z87.42 Personal history of other diseases of the female genital tract; Z79.4 Long term (current) use of insulin; Z79.84 Long term (current) use of oral hypoglycemic drugs; Z88.0 Allergy status to penicillin; Z88.8 Allergy status to other drugs, medicaments and biological substances; Z91.5 Personal history of self-harm
CPT/HCPCS: 36415; 80053; 81003; 82962; 85027; 86593; 87389